=== PATIENT | female | born 1955 | race Caucasian/White ===

== ENCOUNTER 2019-11-19 08:26 | Inpatient (IN) | payer OTHER ==
[~2019-11-19] VITALS: Ht 162.6 cm; Wt 53.5 kg
--- NOTE | ~2019-11-19 | PROC ---
[facility] [address] [place] [address] PROCEDURE REPORT Name: KRISTY UPTON Room: [address] IN M.R.#: [id number] Admission: 11/19/19 Attend Phys: Ravinder Rosas Discharge: Date of : 59 Report #: [id number] THIS REPORT FOR: //name// cc: Vivian Alegre Angela Jo RNP ~ THIS REPORT FOR: //name// For GI report, please see the Provation report in Perceptive 7 content. By: 1310Medical Records Staff TEDDY /ISABEL
--- NOTE | ~2019-11-19 | EMS ---
[facility] [address] [place] [address] EMS Patient Care Report Name: VIDHYA UPTON Room: [facility]#: [id number] Admission: 11/19/19 Attend Phys: Discharge: Date of : 59 Report #: [id number] THIS REPORT FOR: //name// Report Transmitted: 11/19/2019 10:35 EMS Care Summary [facility] [place] Incident [id number] @ 11/19/2019 07:36 Incident Location [address] [place] [address] Patient Vidhya Upton Female, 64 Years 1955 Patient Address [id number] [place] [address] Patient History ,Endocrine Condition - Other,Acute kidney failure, unspecified,Cerebral infarction, unspecified,Old myocardial infarction,Hypertension (HTN),Cardiac Arrest, Patient Allergies , Chief Complaint Shortness of Breath Disposition Transported No Lights/[place] Dispatch Reason Breathing Problem Transported To [facility] Narrative Dispatched to address noted for shortness of breath. [facility] en route at time noted. Arrived and found the patient in her bed. Patient was alert and oriented with the RN in the room. RN stated that the patient is feeling shortness of breath with a history of COPD and low O2 saturation. Patient was placed on O2 [address] [address] EMS Patient Care Report Name: VIDHYA UPTON Room: [facility]#: [id number] Admission: 11/19/19 Attend Phys: Discharge: Date of : 59 Report #: [id number] by the RN and does not normally wear O2. patient was alert and oriented and agreed to transport to [facility] for care due to [place]'s high volume status. Patient had diminished lung sounds per the squadron worker student with us. Patient was moved to stretcher and then buckled in. ONce in ambulance, vitals where started. 12 lead with IV obtained as noted. Patients lab results indicated high WBC count as well as low hemoglobin. Patient also stated foul smelling odor in urine for a few days. patient stated a 8/10 breathing difficulty but has no obvious hard work of breathing. Patient was continued on the 4 liters of O2 and transport was started. While en route, vitals where taken again as noted. Front Counter Attendant student started an A+A treatment with the ambulance exhaust on. Patient denied improvement with treatment. Radio report given at time noted. Arrived and took patient to room 13. patient as moved to bed and RN was given verbal report. RN signed for patient care and patient. Patient was unable to x ray developer pen. END REPORT EMT-P Rhett Pfeiffer Initial Vitals @07:51SpO2: 82, @07:52SpO2: 86, @07:52SpO2: 86, @07:53SpO2: 86, @07:59SpO2: 86, @08:00SpO2: 86, @08:01SpO2: 85, @08:02SpO2: 86, @08:02SpO2: 86, @08:12SpO2: 94, @08:18SpO2: 95, @07:56 @07:53P: 85,R: 16,BP: 126/70, @07:59P: 82,R: 16,BP: 123/67, @08:18P: 83,R: 16,BP: 131/74, @07:53GCS: 15, @07:59GCS: 15, @08:18GCS: 15, @07:41 Assessments @07:41MENTAL:SKIN:HEENT:LUNG SOUNDS:ABDOMEN:PELVIS//GI:EXTREMITIES:PULSE:NEURO: Impression Chronic obstructive pulmonary disease with (acute) exacerbation Procedures @07:41Other - Medication - 4.000 Liters per Minute (l/min [fluid]) - Nasal CannulaResponse: Unchanged@08:05Other - Medication - 8.000 [place] [address] EMS Patient Care Report Name: VIDHYA UPTON Room: [facility]#: [id number] Admission: 11/19/19 Attend Phys: Discharge: Date of : 59 Report #: [id number] (l/min [fluid]) - InhalationResponse: Unchanged@08:05Albuterol - 2.500 Milligrams (mg) - InhalationResponse: Unchanged@08:05Ipratropium - 0.500 Milligrams (mg) - InhalationResponse: Unchanged@08:02 cc () Site: Antecubital-LeftResponse: UnchangedFailed@08:08 cc () Site: Forearm-LeftResponse: UnchangedSucceeded@07:5612-Lead ECGResponse: UnchangedSucceeded Timeline 19:41,Call Received 07:35,Dispatch Notified 07:35,Psap Call 07:36,Dispatched 07:36,En Route 07:39,On Scene 07:41,At Patient 07:41,Other - Medication - 4.000 Liters per Minute (l/min [fluid]) - Nasal Cannula,Response: Unchanged 07:41,BP: / M,PULSE: ,RR: R,SPO2: Ox,ETCO2: ,BG: ,PAIN: ,GCS: , 07:51,BP: / M,PULSE: ,RR: R,SPO2: 82 Ox,ETCO2: ,BG: ,PAIN: ,GCS: , 07:52,BP: / M,PULSE: ,RR: R,SPO2: 86 Ox,ETCO2: ,BG: ,PAIN: ,GCS: , 07:52,BP: / M,PULSE: ,RR: R,SPO2: 86 Ox,ETCO2: ,BG: ,PAIN: ,GCS: , 07:53,BP: / M,PULSE: ,RR: R,SPO2: 86 Ox,ETCO2: ,BG: ,PAIN: ,GCS: , 07:53,BP: 126/70 M,PULSE: 85,RR: 16 R,SPO2: Ox,ETCO2: ,BG: ,PAIN: ,GCS: , 07:53,BP: / M,PULSE: ,RR: R,SPO2: Ox,ETCO2: ,BG: ,PAIN: ,GCS: 15, 07:56,12-Lead ECG,Response: UnchangedSucceeded, 07:56,BP: / M,PULSE: ,RR: R,SPO2: Ox,ETCO2: ,BG: ,PAIN: ,GCS: , 07:59,BP: / M,PULSE: ,RR: R,SPO2: 86 Ox,ETCO2: ,BG: ,PAIN: ,GCS: , 07:59,BP: 123/67 M,PULSE: 82,RR: 16 R,SPO2: Ox,ETCO2: ,BG: ,PAIN: ,GCS: , 07:59,BP: / M,PULSE: ,RR: R,SPO2: Ox,ETCO2: ,BG: ,PAIN: ,GCS: 15, 08:00,BP: / M,PULSE: ,RR: R,SPO2: 86 Ox,ETCO2: ,BG: ,PAIN: ,GCS: , 08:01,BP: / M,PULSE: ,RR: R,SPO2: 85 Ox,ETCO2: ,BG: ,PAIN: ,GCS: , 08:02,BP: / M,PULSE: ,RR: R,SPO2: 86 Ox,ETCO2: ,BG: ,PAIN: ,GCS: , 08:02,BP: / M,PULSE: ,RR: R,SPO2: 86 Ox,ETCO2: ,BG: ,PAIN: ,GCS: , 08:02, cc Site: Antecubital-Left,Response: UnchangedFailed, 08:05,Depart Scene 08:05,Other - Medication - 8.000 Liters per Minute (l/min [fluid]) - Inhalation,Response: Unchanged 08:05,Albuterol - 2.500 Milligrams (mg) - Inhalation,Response: Unchanged 08:05,Ipratropium - 0.500 Milligrams (mg) - Inhalation,Response: Unchanged 08:08, cc Site: Forearm-Left,Response: UnchangedSucceeded, 08:12,BP: / M,PULSE: ,RR: R,SPO2: 94 Ox,ETCO2: ,BG: ,PAIN: ,GCS: , 08:18,BP: / M,PULSE: ,RR: R,SPO2: 95 Ox,ETCO2: ,BG: ,PAIN: ,GCS: , 08:18,BP: 131/74 M,PULSE: 83,RR: 16 R,SPO2: Ox,ETCO2: ,BG: ,PAIN: ,GCS: , 08:18,BP: / M,PULSE: ,RR: R,SPO2: Ox,ETCO2: ,BG: ,PAIN: ,GCS: 15, 08:24,At Destination 08:44,Call Closed [facility] [address] [place] [address] EMS Patient Care Report Name: VIDHYA UPTON Room: [facility]#: [id number] Admission: 11/19/19 Attend Phys: Discharge: Date of : 59 Report #: [id number] Disclaimer v1.1 Copyright 2020 [employer] This EMS Care Summary contains data elements from the applicable legal record (which may be displayed differently). It is designed to provide pertinent information for the following purposes: continuity of care, clinical quality, and state data reporting. The complete legal record is available to ED staff and administrators of the receiving hospital in [facility]'s Patient Tracker. All data is provided "as is."
[2019-11-19 08:34] VITALS: BP 119/68
[2019-11-19] MEDS ORDERED: AFRIN15 ML NASAL (08:42)
[2019-11-19] MEDS ORDERED: CALCIUM CARBON500 MG PO (08:43)
[2019-11-19] MEDS ORDERED: LIPITOR 20 MG T20 M1 PO (08:43)
[2019-11-19] MEDS ORDERED: ELIQUIS2.5 MG PO (08:43)
[2019-11-19] MEDS ORDERED: ASA81BEC PO (08:43)
[2019-11-19] MEDS ORDERED: HYDROCODON-ACE1 EAC7 PO (08:44)
[2019-11-19] MEDS ORDERED: HUMALOG100 UNIT/1 SUBQ (08:44)
[2019-11-19] MEDS ORDERED: FUROSEMIDE 20 M20 MG PO (08:44)
[2019-11-19] MEDS ORDERED: ISOSORBIDE MONO10 MG PO (08:45)
[2019-11-19] MEDS ORDERED: MILK OF MA400 MG/5 M PO (08:45)
[2019-11-19] MEDS ORDERED: PROCARDIA XL60 MG PO (08:45)
[2019-11-19] MEDS ORDERED: TYLENOL325 MG PO (08:46)
[2019-11-19] MEDS ORDERED: PROTONIX40 M3 PO (08:46)
[2019-11-19] MEDS ORDERED: BRILINTA90 MG PO (08:46)
[2019-11-19] MEDS ORDERED: VISINE ALLERGY15 ML OPHTHALMIC (08:47)
[2019-11-19 08:53] LABS: ABSOLUTE BASOPHILS 0.2 thou/uL (0.0-0.2); ABSOLUTE LYMPHOCYTES 0.9 thou/uL (0.8-5.3); ABSOLUTE MONOCYTES 0.7 thou/uL (0.0-1.2); ABSOLUTE NEUTROPHILS 8.6 thou/uL (1.6-8.1); BASOPHILS 1.5 %; EOSINOPHILS 0.4 %; HEMATOCRIT 22.7 % (37.0-47.0); HEMOGLOBIN 7.6 gm/dL (12.0-15.0); MCH 31.2 pg (26.0-34.0); MCHC 33.5 g/dL (28.0-37.0); MCV 93.2 fL (80.0-100.0); MONOCYTES 6.5 %; MPV 9.9 fl. (7.2-11.1); NUCLEATED RBCS 0 /100WBC; PLATELET COUNT* 202 thou/uL (150-400); POLYS 82.6 %; RBC 2.43 mil/uL (4.20-5.00); RDW-CV 17.3 % (10.5-14.5); WBC 10.4 thou/uL (4.0-11.0)
[2019-11-19 09:02] LABS: ANION GAP 9 mmol/L (7-16); APTT 29.6 Seconds (25.0-31.3); BUN 18 mg/dL (7-18); CALCIUM 8.3 mg/dL (8.5-10.1); CHLORIDE 96 mmol/L (98-107); CO2 28 mmol/L (21-32); CREATININE 2.8 mg/dL (0.6-1.3); GLUCOSE 217 mg/dL (70-99); INR 1.2; POTASSIUM 3.5 mmol/L (3.5-5.1); PROTIME 12.2 Seconds (9.20-11.50); SODIUM 133 mmol/L (136-145)
[2019-11-19 09:13] LABS: ALBUMIN 2.3 g/dL (3.4-5.0); ALKALINE PHOSPHATASE 90 U/L (46-116); LIPASE 109 U/L (73-393); MAGNESIUM 2.1 mg/dL (1.8-2.4); NT-PRO BRAIN NAT PEPTIDE > 35000 pg/mL (<300); SGOT 29 U/L (15-37); SGPT 136 U/L (30-65); TOTAL BILIRUBIN 1.6 mg/dL (<0.1-1.0); TOTAL PROTEIN 6.3 g/dL (6.4-8.2)
[2019-11-19 10:18] LABS: PCO2 36.9 mmHg (35.0-45.0); pH 7.476 (7.340-7.450)
[2019-11-19 10:20] LABS: PO2 54.9 mmHg (75.0-100.0)
[2019-11-19 11:22] LABS: ICTOTEST (BILI CONFIRMATORY) Negative (Negative); URINE BILIRUBIN 2+ (Negative); URINE BLOOD 3+ (Negative); URINE CLARITY CLEAR; URINE COLOR YELLOW; URINE GLUCOSE-RANDOM TRACE (Negative); URINE KETONES TRACE (Negative); URINE LEUKOCYTES-REFLEX 3+ (Negative); URINE NITRITE-REFLEX POSITIVE (Negative); URINE PROTEIN 3+ (Negative); URINE SPECIFIC GRAVITY 1.025 (1.005-1.030)
[2019-11-19 11:36] LABS: BACTERIA-REFLEX >30 Many /HPF (None Seen); SQUAMOUS 0-3 Few /LPF (0-3); URINE RBC >20 Many /HPF (0-2); URINE WBC-REFLEX >25 Many /HPF (0-5)
[2019-11-19 11:38] LABS: CASTS None Seen /LPF (None Seen); MUCUS 0-3 Light strn/LPF (None Seen)
[2019-11-19 11:39] LABS: CRYSTALS None Seen /LPF (None Seen)
[2019-11-19 14:15] VITALS: BP 140/83
--- NOTE | 2019-11-19 16:28 | EKG ---
[place] [address] ELECTROCARDIOGRAM REPORT Name: NANDOBAUTISTAKRISTY K Room: [place] [address] ADM IN .R.#: [id number] Admission: 11/19/19 Attend Phys: Louis Butts Discharge: Date of : 59 Date of Service: 11/19/19 0835 Report #: [id number] THIS REPORT FOR: //name// [facility] ED Test Date: 2019-11-19 Test Time: 08:35:07 Pat Name: KRISTY UPTON Department: Room: [facility] Gender: F Cma Or Lpn: TDS : 1955 Requested By: Ken Wong Order Number: [id number] MD: Mk Eden Measurements Intervals [place] Rate: 82 P: 80 [place]: 164 QRS: 2 QRSD: 96 T: -4 QT: 377 QTc: 441 Interpretive Statements Sinus rhythm Probable left atrial enlargement Probable inferior infarct, age indeterminate Probable lateral infarct, old Baseline wander in lead(s) III,aVF No previous ECG available for comparison Electronically Signed On 11-19-2019 16:28:23 CDT by Mk Eden [email or web address] <ELECTRONICALLY SIGNED> By: Mk Eden MD, FAC 11/19/19 1628 0835 0835 Mk Eden MD, FAC /EPI
[2019-11-19 19:17] LABS: CALCIUM 8.1 mg/dL (8.5-10.1); POTASSIUM 4.3 mmol/L (3.5-5.1)
[2019-11-19 19:18] LABS: CREATININE 1.6 mg/dL (0.6-1.3)
[2019-11-20] VITALS: BP 130/73
[2019-11-20 04:00] VITALS: BP 146/85
[2019-11-20 08:00] VITALS: BP 157/94
[2019-11-20 10:07] LABS: CALCIUM 8.4 mg/dL (8.5-10.1); CREATININE 2.4 mg/dL (0.6-1.3); MAGNESIUM 2.2 mg/dL (1.8-2.4); POTASSIUM 4.7 mmol/L (3.5-5.1)
[2019-11-20 12:53] VITALS: BP 162/85
[2019-11-20 14:21] LABS: HEMATOCRIT 22.7 % (37.0-47.0); HEMOGLOBIN 7.4 gm/dL (12.0-15.0)
[2019-11-20 15:03] LABS: CLARITY TURBID; SOURCE PLEURAL FLUID; TOTAL VOLUME 900 ml
[2019-11-20 15:45] LABS: BF RBC 145864 /mm3; TOTAL CELL COUNT 199 /mm3
[2019-11-20 16:02] LABS: BF LYMPHOCYTES 24 %; BF MONOCYTES 54 %; BF POLYS 22 %
[2019-11-20 17:38] VITALS: BP 136/82
[2019-11-20 20:47] VITALS: BP 153/84; BP 156/92; BP 157/85; BP 161/87; BP 169/85
[2019-11-21 01:33] LABS: HEMATOCRIT 29.3 % (37.0-47.0); MCH 31.4 pg (26.0-34.0); MCHC 33.4 g/dL (28.0-37.0); MCV 93.9 fL (80.0-100.0); MPV 10.2 fl. (7.2-11.1); NUCLEATED RBCS 0 /100WBC; PLATELET COUNT* 268 thou/uL (150-400); RBC 3.12 mil/uL (4.20-5.00); RDW-CV 17.3 % (10.5-14.5); WBC 16.2 thou/uL (4.0-11.0)
[2019-11-21 01:36] LABS: HEMOGLOBIN 9.8 gm/dL (12.0-15.0)
[2019-11-21 01:39] LABS: CALCIUM 8.3 mg/dL (8.5-10.1); CREATININE 1.9 mg/dL (0.6-1.3); POTASSIUM 4.4 mmol/L (3.5-5.1)
[2019-11-21 03:14] LABS: ABSOLUTE LYMPHOCYTES 1.1 thou/uL (0.8-5.3); ABSOLUTE MONOCYTES 0.3 thou/uL (0.0-1.2); ABSOLUTE NEUTROPHILS 14.7 thou/uL (1.6-8.1); ANISOCYTOSIS 1+; HYPOCHROMASIA 1+; PLATELET ESTIMATE ADEQUATE; POIKILOCYTOSIS 1+; TOXIC GRANULATION 1+
[2019-11-21 03:15] LABS: POLYCHROMASIA Occasional
[2019-11-21 03:49] VITALS: BP 149/89
[2019-11-21 08:03] VITALS: BP 164/103
[2019-11-21 12:29] VITALS: BP 134/78
[2019-11-21 16:02] VITALS: BP 124/80
--- NOTE | 2019-11-21 17:39 | 2DMMODE ---
[place] [address] 2 D/M-MODE ECHOCARDIOGRAM Name: KRISTY UPTON Room: [address] IN [facility]#: [id number] Admission: 11/19/19 Attend Phys: Louis Butts Discharge: Date of : 59 Date of Service: 11/21/19 1739 Report #: [id number] THIS REPORT FOR: cc: Vivian Alegre Angela Jo RNP Liston, Michael J. MD [facility] ~ APPROVED REPORT Study performed: 11/21/2019 13:28:15 EXAM: Limited 2D Echocardiogram Patient Location: In-Patient Room #: [facility] Status: routine BSA: 1.68 HR: 81 bpm BP: 134/78 mmHg Rhythm: NSR Other Information Study Quality: Good Indications Dyspnea 2D Dimensions IVSd: 12.50 (7-11mm) LVDd: 41.91 mm PWd: 8.95 (7-11mm) LVDs: 30.45 (25-40mm) Volumes Left Atrial Volume (Systole) LA ESV Index: 32.10 mL/m2 Left Ventricle The left ventricle is normal size. There is akinesis of the mid to apical anterior anteroseptal and apical spencer. There is akinesis extending around to the apical portion of the inferior wall. There is normal left ventricular wall thickness. Left ventricular systolic function is moderately decreased. LVEF is 35%. Right Ventricle The right ventricle is normal size. The right ventricular systolic function is normal. [address] [address] 2 D/M-MODE ECHOCARDIOGRAM Name: KRISTY UPTON Room: [address] IN [facility]#: [id number] Admission: 11/19/19 Attend Phys: Louis Butts Discharge: Date of : 59 Date of Service: 11/21/191738 Report #: [id number] Atria The left atrium size is normal. The right atrium size is normal. Aortic Valve The aortic valve is normal in structure. Mitral Valve The mitral valve is normal in structure. Tricuspid Valve The tricuspid valve is normal in structure. Pulmonic Valve The pulmonary valve is normal in structure. Great Vessels The aortic root is normal in size. IVC is normal in size and collapses >50% with inspiration. Pericardium There is no pericardial effusion. Left pleural effusion. <Conclusion> The left ventricle is normal size. There is normal left ventricular wall thickness. Left ventricular systolic function is moderately decreased. LVEF is 35%. IVC is normal in size and collapses >50% with inspiration. Left pleural effusion. <ELECTRONICALLY SIGNED> By: Homar Escobar MD, [facility] 11/21/19 1739 1739 38 Homar Escobar MD, FACC /INF
[2019-11-21 18:44] VITALS: BP 127/80
[2019-11-21 20:00] VITALS: BP 126/76
[2019-11-22 00:56] VITALS: BP 119/71
[2019-11-22 02:06] LABS: GLYCOHEMOGLOBIN (HGB A1C) 5.8 % (4.8-5.6)
[2019-11-22 04:44] VITALS: BP 109/65
[2019-11-22 05:14] LABS: ABSOLUTE BASOPHILS 0.1 thou/uL (0.0-0.2); ABSOLUTE LYMPHOCYTES 0.3 thou/uL (0.8-5.3); ABSOLUTE MONOCYTES 0.5 thou/uL (0.0-1.2); ABSOLUTE NEUTROPHILS 11.6 thou/uL (1.6-8.1); BASOPHILS 0.7 %; HEMATOCRIT 28.9 % (37.0-47.0); HEMOGLOBIN 9.8 gm/dL (12.0-15.0); LYMPHOCYTES 2.8 %; MCH 31.4 pg (26.0-34.0); MCHC 33.8 g/dL (28.0-37.0); MCV 92.7 fL (80.0-100.0); MONOCYTES 4.3 %; MPV 9.8 fl. (7.2-11.1); NUCLEATED RBCS 0 /100WBC; PLATELET COUNT* 272 thou/uL (150-400); POLYS 92.2 %; RBC 3.12 mil/uL (4.20-5.00); RDW-CV 17.2 % (10.5-14.5); WBC 12.6 thou/uL (4.0-11.0)
[2019-11-22 05:47] LABS: ALBUMIN 2.5 g/dL (3.4-5.0); CALCIUM 8.5 mg/dL (8.5-10.1); POTASSIUM 4.9 mmol/L (3.5-5.1); TOTAL BILIRUBIN 1.1 mg/dL (<0.1-1.0); TOTAL PROTEIN 6.5 g/dL (6.4-8.2)
[2019-11-22 05:48] LABS: CREATININE 3.6 mg/dL (0.6-1.3)
[2019-11-22 08:00] VITALS: BP 135/73
--- NOTE | 2019-11-22 11:07 | PATH ---
[address] [address] PATHOLOGY RPT PROCEDURE Name: KRISTY UPTON Room: [address] IN [facility].#: [id number] Admission: 11/19/19 Date of : 59 Discharge: Report #: [id number] Path Case #: [id number] Note [facility] Accession Number: [id number] TESTS RESULT FLAG UNITS REF RANGE LAB Clinician Provided Cytology Information No. of containers..01 Other (Miscellaneous) Source: 01 R. PLEURAL DIAGNOSIS: 02 R. PLEURAL NEGATIVE FOR MALIGNANT EPITHELIAL CELLS. REACTIVE MESOTHELIAL CELLS ARE PRESENT. THIS INTERPRETATION INCLUDES EVALUATION OF A CELL BLOCK. MESOTHELIAL CELLS WITH REACTIVE AND DEGENERATIVE CHANGES ARE PRESENT AMONGST ACUTE AND CHRONIC INFLAMMATORY CELLS AND NUMEROUS RED BLOOD CELLS. Pathologist ICD10: 02 J90, J96.01, N18.6 Signed out by: 02 Cornelia Martin MD, Pathologist NPI- [id number] Performed by: Sachi Segovia, Palliative Care Coordinator ([facility]) Gross description: 01 100 ML, CLDY RED, 1 TP 1CB /LCS 11/21/2019 0615 Local FLAG LEGEND: L-Low Normal,H-High Normal,LL-Alert Low,HH-Alert High <-Panic Low,>-Panic High,A-Abnormal,AA-Critical Abnormal Performed at: [address] [place] [address] Braxton Wing MD, [address] [place] [address] [facility], [place] [address] Yoandy Smith MD, Specimen Comment: Report sent to Performed at: [address], [place], [place] [id number] MD Braxton Wing MD Phone: [phone]
[2019-11-22 15:53] VITALS: BP 134/74
[2019-11-22 20:00] VITALS: BP 128/76
[2019-11-23 00:52] VITALS: BP 109/66
[2019-11-23 04:24] LABS: ABSOLUTE LYMPHOCYTES 0.4 thou/uL (0.8-5.3); ABSOLUTE MONOCYTES 0.6 thou/uL (0.0-1.2); ABSOLUTE NEUTROPHILS 11.2 thou/uL (1.6-8.1); BASOPHILS 0.2 %; HEMOGLOBIN 9.7 gm/dL (12.0-15.0); LYMPHOCYTES 3.6 %; MCH 30.9 pg (26.0-34.0); MCHC 33.3 g/dL (28.0-37.0); MCV 92.9 fL (80.0-100.0); MONOCYTES 4.6 %; MPV 10.3 fl. (7.2-11.1); NUCLEATED RBCS 0 /100WBC; PLATELET COUNT* 249 thou/uL (150-400); POLYS 91.6 %; RBC 3.12 mil/uL (4.20-5.00); RDW-CV 16.8 % (10.5-14.5); WBC 12.3 thou/uL (4.0-11.0)
[2019-11-23 04:32] VITALS: BP 117/62
[2019-11-23 04:32] LABS: CALCIUM 8.6 mg/dL (8.5-10.1); CREATININE 2.7 mg/dL (0.6-1.3); POTASSIUM 4.2 mmol/L (3.5-5.1)
[2019-11-23 08:00] VITALS: BP 137/77
[2019-11-23 11:59] VITALS: BP 133/74
[2019-11-23 15:50] VITALS: BP 102/59
[2019-11-23 20:00] VITALS: BP 129/81
[2019-11-24] VITALS: BP 128/76
[2019-11-24 04:00] VITALS: BP 132/77
[2019-11-24 05:03] LABS: ALBUMIN 2.4 g/dL (3.4-5.0); POTASSIUM 4.3 mmol/L (3.5-5.1); TOTAL BILIRUBIN 0.9 mg/dL (<0.1-1.0)
[2019-11-24 05:22] LABS: CREATININE 3.8 mg/dL (0.6-1.3)
[2019-11-24 06:26] LABS: ABSOLUTE LYMPHOCYTES 0.2 thou/uL (0.8-5.3); ABSOLUTE MONOCYTES 0.5 thou/uL (0.0-1.2); ABSOLUTE NEUTROPHILS 10.5 thou/uL (1.6-8.1); BASOPHILS 0.2 %; HEMATOCRIT 27.6 % (37.0-47.0); HEMOGLOBIN 9.2 gm/dL (12.0-15.0); LYMPHOCYTES 1.8 %; MCH 30.8 pg (26.0-34.0); MCHC 33.2 g/dL (28.0-37.0); MCV 92.7 fL (80.0-100.0); MONOCYTES 4.8 %; MPV 10.4 fl. (7.2-11.1); NUCLEATED RBCS 0 /100WBC; PLATELET COUNT* 251 thou/uL (150-400); POLYS 93.2 %; RBC 2.98 mil/uL (4.20-5.00); RDW-CV 17.1 % (10.5-14.5); WBC 11.2 thou/uL (4.0-11.0)
[2019-11-24 08:00] VITALS: BP 141/79
[2019-11-24 12:00] VITALS: BP 126/72
[2019-11-24 16:00] VITALS: BP 118/70
[2019-11-24 20:00] VITALS: BP 111/67
[2019-11-25 00:34] VITALS: BP 103/63
[2019-11-25 04:00] VITALS: BP 124/72
[2019-11-25 04:18] LABS: ABSOLUTE LYMPHOCYTES 0.2 thou/uL (0.8-5.3); ABSOLUTE MONOCYTES 0.5 thou/uL (0.0-1.2); ABSOLUTE NEUTROPHILS 10.4 thou/uL (1.6-8.1); BASOPHILS 0.1 %; HEMATOCRIT 27.1 % (37.0-47.0); HEMOGLOBIN 9.2 gm/dL (12.0-15.0); LYMPHOCYTES 1.8 %; MCH 31.3 pg (26.0-34.0); MCHC 34.1 g/dL (28.0-37.0); MCV 91.7 fL (80.0-100.0); MONOCYTES 4.7 %; MPV 10.1 fl. (7.2-11.1); NUCLEATED RBCS 0 /100WBC; PLATELET COUNT* 254 thou/uL (150-400); POLYS 93.4 %; RBC 2.96 mil/uL (4.20-5.00); RDW-CV 17.2 % (10.5-14.5); WBC 11.2 thou/uL (4.0-11.0)
[2019-11-25 04:33] LABS: ALBUMIN 2.2 g/dL (3.4-5.0); CALCIUM 7.8 mg/dL (8.5-10.1); CREATININE 4.7 mg/dL (0.6-1.3); POTASSIUM 4.6 mmol/L (3.5-5.1); TOTAL BILIRUBIN 0.8 mg/dL (<0.1-1.0); TOTAL PROTEIN 5.5 g/dL (6.4-8.2)
[2019-11-25 08:10] VITALS: BP 128/71
[2019-11-25 13:02] VITALS: BP 128/66
[2019-11-25 16:46] VITALS: BP 107/64
[2019-11-25 20:10] VITALS: BP 130/70
[2019-11-25] MEDS ORDERED: NORVASC 2.5 MG2.5 M1 PO (22:30)
[2019-11-25] MEDS ORDERED: TRAMADOL 50 MG50 MG PO (22:34)
[2019-11-25] MEDS ORDERED: DEEP SEA NASAL44 M1 NASAL (22:34)
[2019-11-25] MEDS ORDERED: LORAZEPAM I2 MG/1 ML PO (22:41)
[2019-11-25] MEDS ORDERED: ATROPINE SULFATE2 ML OPHTHALMIC (22:43)
[2019-11-25] MEDS ORDERED: SEROQUEL 25 MG25 M1 PO (22:44)
[2019-11-25] MEDS ORDERED: MSL20MG/ML PO ×2 (22:50→22:51)
[2019-11-26] VITALS: BP 123/62
[2019-11-26 04:00] VITALS: BP 130/75
[2019-11-26 04:35] LABS: HEMATOCRIT 29.4 % (37.0-47.0); HEMOGLOBIN 10.2 gm/dL (12.0-15.0); MCHC 34.8 g/dL (28.0-37.0); MCV 91.9 fL (80.0-100.0); MPV 10.5 fl. (7.2-11.1); NUCLEATED RBCS 0 /100WBC; PLATELET COUNT* 292 thou/uL (150-400); RDW-CV 17.4 % (10.5-14.5)
[2019-11-26 05:11] LABS: ALBUMIN 2.1 g/dL (3.4-5.0); CALCIUM 7.7 mg/dL (8.5-10.1); POTASSIUM 4.4 mmol/L (3.5-5.1); TOTAL BILIRUBIN 0.7 mg/dL (<0.1-1.0); TOTAL PROTEIN 5.5 g/dL (6.4-8.2)
[2019-11-26 05:19] LABS: CREATININE 2.9 mg/dL (0.6-1.3)
[2019-11-26 06:18] LABS: ABSOLUTE LYMPHOCYTES 0.2 thou/uL (0.8-5.3); ABSOLUTE MONOCYTES 0.3 thou/uL (0.0-1.2); ABSOLUTE NEUTROPHILS 10.5 thou/uL (1.6-8.1); ANISOCYTOSIS 1+; PLATELET ESTIMATE ADEQUATE
[2019-11-26 06:19] LABS: BURR CELLS 1+; HYPOCHROMASIA 2+; MICROCYTES Occasional
[2019-11-26 07:50] VITALS: BP 130/74
[2019-11-26 08:00] VITALS: BP 130/74
[2019-11-26 17:29] VITALS: BP 133/75
[2019-11-26 19:50] VITALS: BP 135/80
[2019-11-27] VITALS: BP 133/76
[2019-11-27 04:00] VITALS: BP 133/72
[2019-11-27 05:25] LABS: HEMATOCRIT 35.2 % (37.0-47.0); HEMOGLOBIN 11.8 gm/dL (12.0-15.0); MCH 31.1 pg (26.0-34.0); MCHC 33.5 g/dL (28.0-37.0); MCV 92.8 fL (80.0-100.0); MPV 10.2 fl. (7.2-11.1); RBC 3.79 mil/uL (4.20-5.00); RDW-CV 17.9 % (10.5-14.5); WBC 17.4 thou/uL (4.0-11.0)
[2019-11-27 05:39] LABS: CALCIUM 8.6 mg/dL (8.5-10.1); CREATININE 3.8 mg/dL (0.6-1.3); MAGNESIUM 2.1 mg/dL (1.8-2.4); POTASSIUM 5.3 mmol/L (3.5-5.1)
[2019-11-27 17:37] VITALS: BP 119/65
[2019-11-27 20:00] VITALS: BP 100/61; BP 134/79
[2019-11-28] VITALS (15 sets, daily range): BP systolic 110–160; BP diastolic 60–87
--- NOTE | 2019-11-28 12:50 | TEE ---
[place] [address] TRANSESOPHAGEAL ECHOCARDIOGRAM Name: KRISTY UPTON Room: [address] IN [facility]#: [id number] Admission: 11/19/19 Attend Phys: Louis Butts Discharge: Date of : 59 Date of Service: 11/28/19 1249 Report #: [id number] THIS REPORT FOR: cc: Vivian Alegre Angela Jo RNP Liston, Michael J. MD [facility] ~ APPROVED REPORT Study performed: 11/28/2019 11:21:53 EXAM: Transesophageal Echocardiogram Patient Location: In-Patient Room #: [facility] Status: routine BSA: 1.68 HR: 85 bpm BP: 140/78 mmHg Rhythm: NSR Other Information Study Quality: Good Indications CVA/TIA Echo Enhancing Agent Indication: Rule out Shunt Agent(s) / Amount(s) Used: Agitated Saline 10 cc Procedure After obtaining informed consent, patient underwent transesophageal echo in the [employer]. Type of Sedation : Conscious Sedation Sedation was administered by Na Cote RN. Sedation start time: 1140 Case end Time: 1155 Sedation was achieved intravenously with: Versed (3) Fentanyl (75) Transesophageal probe was inserted and advanced into esophagus without difficulty by Homar Escobar MD, [facility]. Echo enhancement indication: R/O Septal defect. Echo enhancement agent administered: Agitated Saline The ILYA was performed without complications. Throughout the procedure, the blood pressure, pulse oximetry, cardiac rhythm, [place] [address] TRANSESOPHAGEAL ECHOCARDIOGRAM Name: KRISTY UPTON Room: [address] IN [facility]#: [id number] Admission: 11/19/19 Attend Phys: Louis Butts Discharge: Date of : 59 Date of Service: 11/28/19 1249 Report #: [id number] The patient tolerated the procedure without adverse effects. Recovery from conscious sedation was uneventful and vital signs were stable. Left Ventricle The left ventricle is normal size. Apical hypokinesis. Mild concentric left ventricular hypertrophy. Left ventricular systolic function is mild to moderately decreased. LVEF is 35-40%. Right Ventricle The right ventricle is normal size. The right ventricular systolic function is normal. Atria No thrombus is visualized in the left atrium or appendage. The interatrial septum is intact with no evidence for an atrial septal defect. The right atrium size is normal. Aortic Valve The aortic valve is normal in structure. No aortic regurgitation is present. There is no aortic valvular stenosis. Mitral Valve The mitral valve is normal in structure. Trace mitral regurgitation. There is normal mitral valve excursion. Tricuspid Valve The tricuspid valve is normal in structure. There is no tricuspid valve regurgitation noted. Pulmonic Valve The pulmonary valve is normal in structure. There is no pulmonic valvular regurgitation. Great Vessels The aortic root is normal in size. Moderate atheromatous plaque of the descending aorta Pericardium There is no pericardial effusion. <Conclusion> The left ventricle is normal size. Mild concentric left ventricular hypertrophy. Left ventricular systolic function is mild [place] [address] TRANSESOPHAGEAL ECHOCARDIOGRAM Name: KRISTY UPTON Room: [address] IN [facility]#: [id number] Admission: 11/19/19 Attend Phys: Louis Butts Discharge: Date of : 59 Date of Service: 11/28/191248 Report #: [id number] LVEF is 35-40%. Apical hypokinesis. The interatrial septum is intact with no evidence for an atrial septal defect. Trace mitral regurgitation. Moderate atheromatous plaque of the descending aorta <ELECTRONICALLY SIGNED> By: Homar Escobar MD, FACC 11/28/199 48 48 Homar Escobar MD, FACC /INF
--- NOTE | 2019-11-28 15:53 | CON ---
[address] [address] CONSULTATION Name: KRISTY UPTON Room: [address] IN M.R.#: [id number] Admission: 11/19/19 Attend Phys: Ravinder Rosas Discharge: Date of : 59 Report #: [id number] THIS REPORT FOR: //name// cc: Vivian Alegre Angela Jo RNP ~ THIS REPORT FOR: //name// CC: Vivian Salinash [place] Butts DATE OF SERVICE: 11/20/2019 NEPHROLOGY CONSULTATION CONSULTING PHYSICIAN: Louis Butts DO REASON FOR NEPHROLOGY CONSULTATION: ESRD and needing hemodialysis. Shortness of breath. REASON FOR ADMISSION: Shortness of breath. HISTORY OF PRESENT ILLNESS: This is a 64-year-old female with diabetic nephropathy, recent new-onset ESRD; on hemodialysis every Monday; Monday; Monday, history of pulmonary hypertension, recent cardiac arrest; needing 2 stents, status post respiratory failure, came in with acute shortness of breath. She was at a rehab in this facility after a prolonged hospitalization at [facility] when she had the cardiac arrest and ended up needing dialysis. She had preexisting chronic kidney disease stage 4 prior to that. She also has systolic dysfunction. She came in yesterday with hypoxia, satting 74% on 2 liters of oxygen by a nasal cannula. Currently, this morning, I saw her on BiPAP. Her chest x-ray showed bilateral pleural effusions as well as evidence of pulmonary edema and she was dialyzed yesterday and is again planned for dialysis today. Her troponins are going up. The patient was very drowsy for me. She was following simple basic commands. ALLERGIES: TO CLINDAMYCIN. REVIEW OF SYSTEMS: Not able to obtain a detailed review of systems because she is very drowsy. HOME MEDICATIONS: Which include Afrin drops, apixaban, aspirin, atorvastatin, calcium carbonate, furosemide, hydrocodone, insulin lispro, isosorbide mononitrate, magnesium hydroxide, nifedipine, pantoprazole, ticagrelor, acetaminophen, [place] [address] CONSULTATION Name: KRISTY UPTON Room: [address]#: [id number] Admission: 11/19/19 Attend Phys: Ravinder Rosas Discharge: Date of : 59 Report #: [id number] PAST MEDICAL AND SURGICAL HISTORY: Which includes ESRD; on hemodialysis every Monday; Monday; Monday, history of diabetic nephropathy, recent cardiac arrest; status post 2 stents; she actually had a STEMI, type 2 diabetes, hyperlipidemia, hypertension, pulmonary hypertension, chronic systolic congestive heart failure. FAMILY HISTORY: Diabetes and hypertension. SOCIAL HISTORY: Drinks on occasions and currently in rehab; not drinking anything, and no tobacco use or recreational drug use. PHYSICAL EXAMINATION: VITAL SIGNS: Blood pressure is 146/85, temperature is 36.4, pulse rate is 92, respiratory rate is 21, and pulse ox 94% on 6 liters of oxygen initially, but currently on BiPAP with 55% FiO2. GENERAL: She is very drowsy for me, tachypneic. HEAD AND EYES: Atraumatic, normocephalic. Conjunctivae normal. EARS, NOSE, AND THROAT: Normal ears, nose and she has a BiPAP in place. NECK: JVD difficult to assess. CHEST: Bilaterally diminished breath sounds anteriorly and crackles were difficult to hear. CARDIOVASCULAR: S1, S2 normal. No murmurs. ABDOMEN: Soft, nondistended, nontender. EXTREMITIES: Lower extremities: There was no lower extremity edema. NEUROLOGICAL FUNCTION: Currently, quite drowsy. PSYCHIATRIC: Not able to assess. LABORATORY DATA: WBC is 10.4, hemoglobin is 7.6. Her creatinine was 2.8 yesterday. Her sodium was 133 yesterday and potassium was 3.5 yesterday. Other labs are reviewed. IMAGING: Chest thoracic CT and chest x-ray reports were reviewed. ASSESSMENT: 1. End-stage renal disease, on hemodialysis, recently started on dialysis after cardiac arrest and history of diabetic nephropathy; gets dialyzed every Monday, Monday, Monday. 2. The patient presented with acute hypoxic respiratory failure in the setting of bilateral pleural effusions and pulmonary edema. 3. Elevated troponin, possible non-ST elevation myocardial infarction. Cardiology is following. 4. History of diabetes type 2, deferred to primary team for management. 5. History of hypertension. Blood pressure seems to be controlled. 6. Anemia of chronic kidney disease. 7[place] [address] CONSULTATION Name: KRISTY UPTON Room: [address] IN M.R.#: [id number] Admission: 11/19/19 Attend Phys: Ravinder Rosas Discharge: Date of : 59 Report #: [id number] PLAN: 1. I will dialyze her today. She was dialyzed yesterday also for fluid removal. She might need thoracentesis for pleural effusions. 2. She is also getting treated for possible pneumonia. 3. Elevated troponin, Cardiology is following. I recommend speaking with Cardiology at [place] since she was recently there with the STEMI, needing 2 stents. 4. We will give her Epogen to help with anemia as well. Thank you for this consult. We will continue to follow with you. I did review the UA and she is on a blood thinner and this specimen is from a catheter, so I am not sure if she was having any symptoms of a UTI. Urine cultures are being checked. Thank you. We will follow with you. <ELECTRONICALLY SIGNED> By: Crystal Luu MD 11/28/19 1553 0920 0949Crystal Luu MD /nt
[2019-11-29] VITALS: BP 134/77
[2019-11-29 04:00] VITALS: BP 128/73
[2019-11-29 05:21] LABS: ANION GAP 8 mmol/L (7-16); BUN 70 mg/dL (7-18); CALCIUM 8.3 mg/dL (8.5-10.1); CHLORIDE 97 mmol/L (98-107); CHOLESTEROL 205 mg/dL (<200); CO2 26 mmol/L (21-32); CREATININE 4.4 mg/dL (0.6-1.3); GLUCOSE 269 mg/dL (70-99); HDL CHOLESTEROL 45 mg/dL (>40); LDL CHOLESTEROL 130 mg/dL (<100); POTASSIUM 4.5 mmol/L (3.5-5.1); SERUM ASSESSMENT CLEAR; SODIUM 131 mmol/L (136-145); TC:HDL 4.6 Ratio (Not establshd); TRIGLYCERIDE 154 mg/dL (<150); VLDL 31 mg/dL (<40)
[2019-11-29 05:27] LABS: ALBUMIN 2.2 g/dL (3.4-5.0); CALCIUM 8.2 mg/dL (8.5-10.1); CREATININE 4.4 mg/dL (0.6-1.3); POTASSIUM 4.4 mmol/L (3.5-5.1)
[2019-11-29 08:00] VITALS: BP 126/69
[2019-11-29 11:00] VITALS: BP 158/88
[2019-11-29 16:00] VITALS: BP 113/63
[2019-11-29 20:00] VITALS: BP 119/60
[2019-11-30] VITALS (7 sets, daily range): BP systolic 93–137; BP diastolic 46–69
[2019-11-30 02:06] LABS: GLYCOHEMOGLOBIN (HGB A1C) 6.2 % (4.8-5.6)
[2019-12-01] VITALS: BP 120/65
[2019-12-01 04:00] VITALS: BP 138/69
[2019-12-01 08:00] VITALS: BP 135/68
[2019-12-01 12:00] VITALS: BP 93/55
[2019-12-01 16:00] VITALS: BP 93/45
[2019-12-01 18:17] LABS: HEMATOCRIT 25.9 % (37.0-47.0); HEMOGLOBIN 8.7 gm/dL (12.0-15.0)
[2019-12-01 20:00] VITALS: BP 110/56
[2019-12-02] VITALS (26 sets, daily range): BP systolic 90–133; BP diastolic 55–70
[2019-12-02 04:30] LABS: HEMATOCRIT 26.5 % (37.0-47.0); HEMOGLOBIN 8.8 gm/dL (12.0-15.0); MCH 30.9 pg (26.0-34.0); MCHC 33.3 g/dL (28.0-37.0); MCV 92.9 fL (80.0-100.0); MPV 10.1 fl. (7.2-11.1); RBC 2.86 mil/uL (4.20-5.00); RDW-CV 18.2 % (10.5-14.5); WBC 28.9 thou/uL (4.0-11.0)
[2019-12-02 04:39] LABS: CALCIUM 8.4 mg/dL (8.5-10.1); POTASSIUM 5.5 mmol/L (3.5-5.1)
[2019-12-02 04:48] LABS: CREATININE 5.5 mg/dL (0.6-1.3)
[2019-12-02 14:34] LABS: HEMOGLOBIN 7.9 gm/dL (12.0-15.0); MCH 31.6 pg (26.0-34.0); MCHC 34.3 g/dL (28.0-37.0); MCV 92.2 fL (80.0-100.0); NUCLEATED RBCS 0 /100WBC; PLATELET COUNT* 241 thou/uL (150-400); RBC 2.49 mil/uL (4.20-5.00); RDW-CV 18.6 % (10.5-14.5); WBC 27.9 thou/uL (4.0-11.0)
[2019-12-02 14:58] LABS: ALBUMIN 1.8 g/dL (3.4-5.0); CALCIUM 7.6 mg/dL (8.5-10.1); TOTAL BILIRUBIN 0.8 mg/dL (<0.1-1.0); TOTAL PROTEIN 4.6 g/dL (6.4-8.2)
[2019-12-02 15:00] LABS: CREATININE 2.5 mg/dL (0.6-1.3); POTASSIUM 4.2 mmol/L (3.5-5.1)
[2019-12-02 15:09] LABS: ABSOLUTE LYMPHOCYTES 1.1 thou/uL (0.8-5.3); ABSOLUTE MONOCYTES 0.8 thou/uL (0.0-1.2); ABSOLUTE NEUTROPHILS 25.9 thou/uL (1.6-8.1)
[2019-12-02 15:10] LABS: ANISOCYTOSIS 1+; HYPOCHROMASIA 1+; PLATELET ESTIMATE ADEQUATE; POIKILOCYTOSIS 1+
[2019-12-02 16:38] LABS: INR 1.1; PROTIME 11.3 Seconds (9.20-11.50)
[2019-12-02 21:13] LABS: HEMATOCRIT 23.5 % (37.0-47.0); HEMOGLOBIN 7.9 gm/dL (12.0-15.0)
[2019-12-03] VITALS (50 sets, daily range): BP systolic 97–134; BP diastolic 47–75
[2019-12-03 07:17] LABS: ABSOLUTE BASOPHILS 0.1 thou/uL (0.0-0.2); ABSOLUTE LYMPHOCYTES 0.3 thou/uL (0.8-5.3); ABSOLUTE MONOCYTES 2.6 thou/uL (0.0-1.2); ABSOLUTE NEUTROPHILS 21.5 thou/uL (1.6-8.1); BASOPHILS 0.3 %; EOSINOPHILS 0.1 %; HEMATOCRIT 22.2 % (37.0-47.0); HEMOGLOBIN 7.3 gm/dL (12.0-15.0); LYMPHOCYTES 1.3 %; MCH 30.6 pg (26.0-34.0); MCHC 33.1 g/dL (28.0-37.0); MCV 92.6 fL (80.0-100.0); MONOCYTES 10.6 %; MPV 9.9 fl. (7.2-11.1); NUCLEATED RBCS 0 /100WBC; PLATELET COUNT* 211 thou/uL (150-400); POLYS 87.7 %; RBC 2.39 mil/uL (4.20-5.00); RDW-CV 18.5 % (10.5-14.5); WBC 24.6 thou/uL (4.0-11.0)
[2019-12-03 07:30] LABS: PREALBUMIN 14.9 mg/dL (18.0-35.7)
[2019-12-03 07:36] LABS: ALBUMIN 1.7 g/dL (3.4-5.0); CALCIUM 7.6 mg/dL (8.5-10.1); POTASSIUM 3.8 mmol/L (3.5-5.1); TOTAL BILIRUBIN 0.9 mg/dL (<0.1-1.0); TOTAL PROTEIN 5.1 g/dL (6.4-8.2)
[2019-12-03 07:37] LABS: CREATININE 3.5 mg/dL (0.6-1.3)
[2019-12-04] VITALS (19 sets, daily range): BP systolic 111–161; BP diastolic 62–83
[2019-12-04 04:36] LABS: ABSOLUTE BASOPHILS 0.1 thou/uL (0.0-0.2); ABSOLUTE EOSINOPHILS 0.2 thou/uL (0.0-0.7); ABSOLUTE LYMPHOCYTES 4.7 thou/uL (0.8-5.3); ABSOLUTE MONOCYTES 1.7 thou/uL (0.0-1.2); ABSOLUTE NEUTROPHILS 12.6 thou/uL (1.6-8.1); BASOPHILS 0.4 %; EOSINOPHILS 1.2 %; HEMATOCRIT 20.5 % (37.0-47.0); LYMPHOCYTES 24.4 %; MCHC 33.8 g/dL (28.0-37.0); MCV 91.8 fL (80.0-100.0); MONOCYTES 8.7 %; MPV 10.2 fl. (7.2-11.1); NUCLEATED RBCS 0 /100WBC; PLATELET COUNT* 196 thou/uL (150-400); POLYS 65.3 %; RBC 2.24 mil/uL (4.20-5.00); WBC 19.3 thou/uL (4.0-11.0)
[2019-12-04 04:57] LABS: HEMOGLOBIN 6.9 gm/dL (12.0-15.0)
[2019-12-04 05:06] LABS: PREALBUMIN 13.2 mg/dL (18.0-35.7)
[2019-12-04 06:40] LABS: ALBUMIN 1.4 g/dL (3.4-5.0); CALCIUM 7.1 mg/dL (8.5-10.1); CREATININE 4.1 mg/dL (0.6-1.3); POTASSIUM 3.8 mmol/L (3.5-5.1); TOTAL BILIRUBIN 0.7 mg/dL (<0.1-1.0); TOTAL PROTEIN 4.5 g/dL (6.4-8.2)
[2019-12-04 14:01] LABS: HEMATOCRIT 26.2 % (37.0-47.0)
[2019-12-04 14:02] LABS: HEMOGLOBIN 9.1 gm/dL (12.0-15.0)
[2019-12-05 01:01] VITALS: BP 138/70
[2019-12-05 04:32] VITALS: BP 151/75
[2019-12-05 19:00] VITALS: BP 157/85
[2019-12-05 19:50] VITALS: BP 155/86
[2019-12-06] VITALS: BP 104/49
[2019-12-06 04:43] VITALS: BP 158/82
[2019-12-06 04:57] LABS: HEMATOCRIT 24.4 % (37.0-47.0); HEMOGLOBIN 8.4 gm/dL (12.0-15.0); MCH 30.3 pg (26.0-34.0); MCHC 34.4 g/dL (28.0-37.0); MCV 88.2 fL (80.0-100.0); MPV 9.7 fl. (7.2-11.1); RBC 2.77 mil/uL (4.20-5.00); RDW-CV 20.5 % (10.5-14.5); WBC 12.8 thou/uL (4.0-11.0)
[2019-12-06 05:16] LABS: ALBUMIN 1.7 g/dL (3.4-5.0); CALCIUM 7.8 mg/dL (8.5-10.1); CREATININE 3.8 mg/dL (0.6-1.3); MAGNESIUM 1.9 mg/dL (1.8-2.4); POTASSIUM 3.8 mmol/L (3.5-5.1)
[2019-12-06 15:01] VITALS: BP 177/81
[2019-12-06 18:55] VITALS: BP 167/88
[2019-12-06 20:00] VITALS: BP 162/92
[2019-12-07] VITALS: BP 160/83
[2019-12-07 04:00] VITALS: BP 144/76
[2019-12-07 05:07] LABS: ABSOLUTE BASOPHILS 0.1 thou/uL (0.0-0.2); ABSOLUTE EOSINOPHILS 0.4 thou/uL (0.0-0.7); ABSOLUTE LYMPHOCYTES 1.4 thou/uL (0.8-5.3); ABSOLUTE MONOCYTES 1.5 thou/uL (0.0-1.2); ABSOLUTE NEUTROPHILS 8.4 thou/uL (1.6-8.1); BASOPHILS 0.8 %; EOSINOPHILS 3.4 %; HEMATOCRIT 24.9 % (37.0-47.0); HEMOGLOBIN 8.4 gm/dL (12.0-15.0); LYMPHOCYTES 11.5 %; MCH 30.1 pg (26.0-34.0); MCHC 33.9 g/dL (28.0-37.0); MCV 88.8 fL (80.0-100.0); MPV 9.8 fl. (7.2-11.1); NUCLEATED RBCS 0 /100WBC; PLATELET COUNT* 197 thou/uL (150-400); POLYS 71.3 %; RDW-CV 19.9 % (10.5-14.5); WBC 11.8 thou/uL (4.0-11.0)
[2019-12-07 05:07] LABS: HEPATITIS B SURFACE AG Negative (Negative)
[2019-12-07 05:38] LABS: ALBUMIN 1.8 g/dL (3.4-5.0); CALCIUM 7.9 mg/dL (8.5-10.1); MAGNESIUM 1.9 mg/dL (1.8-2.4); TOTAL PROTEIN 5.3 g/dL (6.4-8.2)
[2019-12-07 06:02] LABS: CREATININE 2.8 mg/dL (0.6-1.3)
[2019-12-07 08:00] VITALS: BP 134/69
[2019-12-07 12:37] VITALS: BP 154/85
[2019-12-07 19:50] VITALS: BP 144/79
[2019-12-08] VITALS: BP 141/75
[2019-12-08 04:00] VITALS: BP 129/69
[2019-12-08 08:00] VITALS: BP 142/71
[2019-12-08 12:47] VITALS: BP 136/77
[2019-12-08 16:20] VITALS: BP 143/77
[2019-12-08 20:30] VITALS: BP 123/77
[2019-12-09] VITALS: BP 151/77
[2019-12-09 00:36] LABS: URINE BILIRUBIN NEGATIVE (Negative); URINE BLOOD 2+ (Negative); URINE CLARITY CLOUDY; URINE COLOR DARK YELLOW; URINE GLUCOSE-RANDOM NEGATIVE (Negative); URINE KETONES TRACE (Negative); URINE LEUKOCYTES-REFLEX TRACE (Negative); URINE NITRITE-REFLEX NEGATIVE (Negative); URINE PROTEIN 3+ (Negative); URINE UROBILINOGEN 0.2 E.U./dl (0.2-1.0)
[2019-12-09 00:43] LABS: BACTERIA-REFLEX >30 Many /HPF (None Seen); CELLULAR CASTS 0-3 Few /LPF (None Seen); COARSE GRANULAR CASTS 0-3 Few /LPF (None Seen); FINE GRANULAR CASTS 0-3 Few /LPF (None Seen); MUCUS 4-6 Moderate strn/LPF (None Seen); SQUAMOUS 0-3 Few /LPF (0-3); URINE RBC >20 Many /HPF (0-2); URINE WBC-REFLEX >25 Many /HPF (0-5); WBC CLUMPS Moderate (None Seen)
[2019-12-09 00:44] LABS: AMORPHOUS URATES Moderate /LPF (None Seen)
[2019-12-09 04:00] VITALS: BP 150/76
[2019-12-09 05:20] LABS: ALBUMIN 1.8 g/dL (3.4-5.0); CALCIUM 8.2 mg/dL (8.5-10.1); MAGNESIUM 1.9 mg/dL (1.8-2.4); PHOSPHORUS* 1.9 mg/dL (2.5-4.9); POTASSIUM 3.6 mmol/L (3.5-5.1)
[2019-12-09 05:25] LABS: % SATURATION 38 % (20-39); IRON 59 ug/dL (50-175)
[2019-12-09 05:33] LABS: CREATININE 4.9 mg/dL (0.6-1.3)
[2019-12-09 06:22] LABS: HEMOGLOBIN 7.8 gm/dL (12.0-15.0); MCH 30.7 pg (26.0-34.0); MCV 90.3 fL (80.0-100.0); MPV 9.7 fl. (7.2-11.1); RBC 2.55 mil/uL (4.20-5.00); RDW-CV 20.3 % (10.5-14.5); WBC 14.8 thou/uL (4.0-11.0)
[2019-12-09 11:00] VITALS: BP 143/87
[2019-12-09 12:44] VITALS: BP 137/98
[2019-12-09 14:49] LABS: ABSOLUTE BASOPHILS 0.2 thou/uL (0.0-0.2); ABSOLUTE EOSINOPHILS 0.4 thou/uL (0.0-0.7); ABSOLUTE LYMPHOCYTES 1.2 thou/uL (0.8-5.3); ABSOLUTE MONOCYTES 0.8 thou/uL (0.0-1.2); ABSOLUTE NEUTROPHILS 11.8 thou/uL (1.6-8.1); BASOPHILS 1.1 %; EOSINOPHILS 2.6 %; HEMATOCRIT 23.5 % (37.0-47.0); LYMPHOCYTES 8.5 %; MCH 30.6 pg (26.0-34.0); MCHC 34.2 g/dL (28.0-37.0); MCV 89.4 fL (80.0-100.0); MONOCYTES 5.4 %; NUCLEATED RBCS 0 /100WBC; PLATELET COUNT* 201 thou/uL (150-400); POLYS 82.4 %; RBC 2.63 mil/uL (4.20-5.00); RDW-CV 19.8 % (10.5-14.5); WBC 14.4 thou/uL (4.0-11.0)
[2019-12-09 15:00] LABS: PROTIME 10.6 Seconds (9.20-11.50)
[2019-12-09 17:00] VITALS: BP 135/71; BP 152/82
[2019-12-09 19:50] VITALS: BP 141/85
[2019-12-10 04:30] VITALS: BP 160/93
[2019-12-10 05:09] LABS: ABSOLUTE BASOPHILS 0.2 thou/uL (0.0-0.2); ABSOLUTE EOSINOPHILS 0.4 thou/uL (0.0-0.7); ABSOLUTE LYMPHOCYTES 1.2 thou/uL (0.8-5.3); ABSOLUTE NEUTROPHILS 9.8 thou/uL (1.6-8.1); BASOPHILS 1.3 %; EOSINOPHILS 3.4 %; HEMOGLOBIN 9.2 gm/dL (12.0-15.0); LYMPHOCYTES 9.8 %; MCH 30.2 pg (26.0-34.0); MCHC 34.1 g/dL (28.0-37.0); MCV 88.7 fL (80.0-100.0); MONOCYTES 8.1 %; MPV 9.2 fl. (7.2-11.1); NUCLEATED RBCS 0 /100WBC; PLATELET COUNT* 196 thou/uL (150-400); POLYS 77.4 %; RBC 3.05 mil/uL (4.20-5.00); WBC 12.7 thou/uL (4.0-11.0)
[2019-12-10 05:20] LABS: ALBUMIN 1.9 g/dL (3.4-5.0); CALCIUM 7.8 mg/dL (8.5-10.1); POTASSIUM 3.8 mmol/L (3.5-5.1); TOTAL BILIRUBIN 0.8 mg/dL (<0.1-1.0); TOTAL PROTEIN 5.9 g/dL (6.4-8.2)
[2019-12-10 08:00] VITALS: BP 157/89
[2019-12-10 11:00] VITALS: BP 134/94
[2019-12-10] MEDS ORDERED: PROTONIX40 M3 PO (11:30)
[2019-12-10] MEDS ORDERED: MIDODRINE HCL 55 M1 PO (11:30)
[2019-12-10] MEDS ORDERED: ALBUTEROL2.5 MG/31 INH (11:30)
[2019-12-10] MEDS ORDERED: HUMALOG100 UNIT/1 SUBQ ×2 (11:30→11:32)
[2019-12-10] MEDS ORDERED: REGLAN 10 MG TA10 MG PO (11:30)
[2019-12-10] MEDS ORDERED: LIPITOR 40 MG T40 M1 PO (11:30)
[2019-12-10] MEDS ORDERED: HUMULIN N100 UNIT/1 SUBQ (11:30)
[2019-12-10] MEDS ORDERED: PEPCID20 MG PO (11:30)
[2019-12-10] MEDS ORDERED: IMDUR 30 MG TAB30 M1 PO (11:30)
[2019-12-10] MEDS ORDERED: IPRAT-ALBUT 0.5-3 ML INH (11:30)
[2019-12-10] MEDS ORDERED: COREG6.25 MG PO (11:30)
[2019-12-10] MEDS ORDERED: EPOGEN2000 UNIT/ IVPUSH (11:30)
[2019-12-10 12:00] VITALS: BP 152/88
[2019-12-10 13:33] VITALS: BP 152/88
[2019-12-10 16:00] VITALS: BP 155/100
--- NOTE | 2019-12-12 13:11 | CON ---
[address] [address] CONSULTATION Name: KRISTY UPTON Room: [address] IN M.R.#: [id number] Admission: 11/19/19 Attend Phys: Ravinder Rosas Discharge: 12/10/19 Date of : 59 Report #: [id number] THIS REPORT FOR: //name// cc: Vivian Alegre Angela Jo RNP ~ THIS REPORT FOR: //name// CC: Vivian Butts DATE OF SERVICE: 12/05/2019 REQUESTING PHYSICIAN: Dr. Alejo. INDICATION FOR CONSULTATION: Aspiration pneumonia/anoxia. HISTORY OF PRESENT ILLNESS: This is a 64-year-old female, who was initially admitted on 11/19/2019. The patient is reported to have previously had a cardiac arrest and now has presented with acute shortness of breath. The patient previously was on 4 liters oxygen at home, was reported to be saturating only 74% on 2 liters on arrival. The patient had been recently started on hemodialysis prior to admission. The patient does have a dialysis catheter in place. Since arrival, the patient has been evaluated by the Cardiology Service as well as by the GI service and has been followed by Nephrology as well. She did have a significant elevation in troponin I up to 1.6. on the day of admission. She does have a depressed left ventricular ejection fraction. Initially she also did have a thoracentesis which was reported to hemorrhagic, but the protein is only 1.1 on the fluid. The patient has been treated with various antibiotics during this hospitalization. Initially, she was on Zithromax as well as ceftriaxone that she briefly received Levaquin as well as metronidazole. The patient currently is on Zosyn since 12/02/2019. The patient subsequently has had a drop in hemoglobin as well and just had an EGD, which does show an esophageal ulcer. The patient currently is running a low-grade fever of 100.4. The patient overall reports feeling better since she was admitted. She earlier was on Eliquis, which was discontinued on the . She is reported to have had upper extremity venous thrombus. The patient has been evaluated by speech during this hospitalization. Currently, the patient does not report coughing with eating food. There is no sputum production, no chest pain, no upper respiratory complaints. There is mild swelling of lower extremities. The patient answered to the negative for 12 questions for review of systems except as above with the exception that she does have some sleep complaints as well as [place] [address] CONSULTATION Name: KRISTY UPTON Alisia Room: [address] IN M.R.#: [id number] Admission: 11/19/19 Attend Phys: Ravinder Rosas Discharge: 12/10/19 Date of : 59 Report #: [id number] PAST MEDICAL HISTORY: End-stage renal disease. The patient has only recently been started on hemodialysis, diabetic nephropathy, cardiac arrest in the past has 2 stents, diabetes, hyperlipidemia, hypertension. The patient's recent echocardiogram shows congestive heart failure with left ventricular ejection fraction decreased to 35%. The tricuspid valve is reported to be normal on this echo. SOCIAL HISTORY: Lifetime nonsmoker. No known history of heavy alcohol use or illegal drug use. CURRENT MEDICATIONS: List in [facility] reviewed. FAMILY HISTORY: No pertinent family history is known at this time. ALLERGIES: LORAZEPAM AND CLINDAMYCIN ARE LISTED ALLERGIES. PHYSICAL EXAMINATION: GENERAL: The patient is able to provide only a limited history; however, she is alert, awake and oriented. She is not on supplemental oxygen. VITAL SIGNS: Has a pulse of 87 and a blood pressure of 148/105. She is saturating 98%. Her respiratory rate is 15-16. She is afebrile with a temperature of 36.8 as of this morning. HEENT: Head is normocephalic and atraumatic. Pupils are equal and reactive. There is no throat erythema. NECK: Does not show raised JVP, asymmetry, mass or lymph nodes. CHEST: Symmetrical expansion on inspection and palpation. On auscultation, breath sounds are diminished at bilateral lung bases. The rest of the chest is clear. HEART: Regular. There is no murmur. ABDOMEN: Soft and nontender. EXTREMITIES: Lower extremities show trace edema, no calf tenderness. SKIN: Dry and intact. NEUROLOGICAL: She did move all extremities bilaterally equally and spontaneously with no focal deficit identified. LABORATORY DATA: The patient's chest x-ray is reviewed. This is consistent with fluid overload. Due to the presence of fluid overload, superimposed pneumonia cannot be ruled out. The patient's CBC as well as chemistries from yesterday and previously in [facility] were reviewed. Arterial blood gas initially showed acute hypoxemic respiratory failure in [facility] reviewed. Her initial COVID-19 screen was negative. Thoracentesis results as above. Abnormal urinalysis on admission as above reviewed. [address] [address] CONSULTATION Name: KRISTY UPTON Room: [address]#: [id number] Admission: 11/19/19 Attend Phys: Ravinder Rosas Discharge: 12/10/19 Date of : 59 Report #: [id number] ASSESSMENT AND PLAN: 1. Acute systolic congestive heart failure with fluid overload. The chronicity of the patient's heart failure is not fully apparent to me. She does appear to have this present on x-rays during this admission. At this time, the findings of the patient's chest x-ray, likely still are secondary to fluid overload. She is due for hemodialysis tomorrow. I understand she will have fluid removal. We will repeat a chest x-ray subsequently and then reassess. The patient may have a high fluid intake as well as, recommend touching base with Nephrology regarding the amount of fluid the patient should be ingesting. 2. Pulmonary infiltrates/possible aspiration pneumonia. The patient currently is on Zosyn. We will be reevaluate after fluid is removed with hemodialysis tomorrow. If findings persist, then a repeat CT chest can be considered. 3. End-stage renal disease, on hemodialysis. 4. Pleural effusions, last thoracentesis consistent with transudate based on protein, but reported to be hemorrhagic. 5. Suspected central/obstructive sleep apnea, it will be unlikely the patient is able to wear a CPAP or BiPAP; however, I recommend obtaining a nocturnal pulse oximetry prior to her discharge and placing her on oxygen while asleep. If indicated previously, the patient has used oxygen during the day as well. Currently, she is on room air. 6. Upper gastrointestinal bleed/esophageal ulcer. GI service is on the case. 7. Recent upper extremity deep venous thrombosis. We will try to get more information regarding this and see if we need to repeat Dopplers. The patient until recently was on Eliquis, which is now on hold, I understand due to upper gastrointestinal bleed. 8. Severe malnutrition. Albumin noted to be 1.4. 9. Elevated troponin I as above. Thanks for this consultation. <ELECTRONICALLY SIGNED> By: Gio Hahn MD 12/12/19 1311 1825 [id number] Hahn MD /nt
--- NOTE | 2019-12-12 18:45 | CON ---
[address] [address] CONSULTATION Name: KRISTY UPTON Room: [address] IN M.R.#: [id number] Admission: 11/19/19 Attend Phys: Ravinder Rosas Discharge: 12/10/19 Date of : 59 Report #: [id number] THIS REPORT FOR: //name// cc: Vivian Alegre Angela Jo RNP ~ THIS REPORT FOR: //name// CC: Vivian Butts DATE OF SERVICE: 11/22/2019 HISTORY OF PRESENT ILLNESS: This is a 64-year-old female patient who was evaluated by me for altered mental status. When I saw this patient, she was not doing anything for me. She would not talk. I talked to the dialysis nurse who have seen this patient and she said there has been a pretty significant deterioration. I called the patient's who is actually in the hospital for a blood clot according to him, he is admitted here. He says the patient has been like this for the last several months, he estimates 6-8 months, her mentation is not proper, she cannot say things properly. Her memory is poor. He said all the workup was done in [place] and I do not have that workup. REVIEW OF SYSTEMS: Also positive for cardiac arrest on 11/04 as per records. She also had a low oxygen saturation. She takes oxygen at home. She has a history of hyperlipidemia, diabetes, hypertension and renal failure. She is being followed by multiple consultants. That was a relevant 14-point review of system. PAST MEDICAL HISTORY: Positive for what looks like a cardiac arrest in [place]. FAMILY HISTORY: Noncontributory. SOCIAL HISTORY: According to the she does not drink or smoke. PHYSICAL EXAMINATION: Her examination was attempted. She did not say a single word for me. It looks like she has talked to other providers. Cranial nerve examination 2-12 was attempted, but she did not cooperate. I cannot tell if she moves anything, I cannot check the reflexes because she did not cooperate. She does appear to be short of breath. She is getting the dialysis. Pulse is 75, blood pressure is 134/74, temperature is 97.5. Cardiology note was reviewed. She has a pretty significant cardiac disease. Pulses are difficult to feel. IMPRESSION: Pretty difficult to form in this patient. It looks like this patient has dementia with some encephalopathy with multior[place] [address] CONSULTATION Name: KRISTY UPTON Room: [address] IN [facility].#: [id number] Admission: 11/19/19 Attend Phys: Ravinder Rosas Discharge: 12/10/19 Date of : 59 Report #: [id number] been ordered and I will look at the CT, I will also get an EEG done. I told the family that they need to decide how aggressive they want to be with this patient who has multiple medical problems. Thank you very much for this referral. <ELECTRONICALLY SIGNED> By: Geoffrey Phipps MD 12/12/19 1845 1643 [id number] Phipps MD /nt
--- NOTE | 2019-12-12 18:46 | EEG ---
[address] [address] EEG STUDY REPORT Name: KRISTY UPTON Room: [address] IN .R.#: [id number] Admission: 11/19/19 Attend Phys: Ravinder Rosas Discharge: 12/10/19 Date of : 59 Report #: [id number] THIS REPORT FOR: //name// CC: Vivian Butts DATE OF SERVICE: 11/26/2019 This patient is being evaluated for altered mental status. EEG was done by placing the electrode by standard 10-20 system of electrode placement. Both referential and sequential montages were used for recording. Background activity in this patient's EEG is about 7 Hz and 30 microvolts. It is a poorly formed background activity. The patient went to sleep that is associated with bilateral slowing and vertex sharp waves. Throughout the record, no active epileptiform activity was noticed. IMPRESSION: This is an abnormal EEG because it is disorganized and poorly formed. That is a nonspecific abnormality, which can occur with encephalopathy, effect of psychotropic medication, dementia, etc. Clinical correlation is recommended. <ELECTRONICALLY SIGNED> By: Geoffrey Phipps MD 12/12/19 1846 0950 [id number] Phipps MD /nt
== END 2019-12-10 18:10 | DRG 871 ==
LOC: M.ERS 08:26 → M.ICU 11:26 → M.TBA-ER 11:26 → M.2W 11:26 → M.ICU 12-02 14:11 → M.2W 12-04 22:10
PROVIDERS: Family Medicine; Internal Medicine; Internal Medicine Critical Care Medicine; Internal Medicine Nephrology; Registered Nurse; ADMIT Internal Medicine; ATTEND Internal Medicine
PROC: 0W993ZX Drainage of Right Pleural Cavity, Percutaneous Approach, Diagnostic (ICD-10-PCS; principal; 2019-11-19)
PROC: 5A1D70Z Performance of Urinary Filtration, Intermittent, Less than 6 Hours Per Day (ICD-10-PCS; principal; 2019-11-19)
PROC: 5A1D70Z Performance of Urinary Filtration, Intermittent, Less than 6 Hours Per Day (ICD-10-PCS; 2019-11-20)
PROC: 5A09357 Assistance with Respiratory Ventilation, Less than 24 Consecutive Hours, Continuous Positive Airway Pressure (ICD-10-PCS; 2019-11-20)
PROC: 5A09357 Assistance with Respiratory Ventilation, Less than 24 Consecutive Hours, Continuous Positive Airway Pressure (ICD-10-PCS; 2019-11-21)
PROC: 5A1D70Z Performance of Urinary Filtration, Intermittent, Less than 6 Hours Per Day (ICD-10-PCS; 2019-11-22)
PROC: 5A09357 Assistance with Respiratory Ventilation, Less than 24 Consecutive Hours, Continuous Positive Airway Pressure (ICD-10-PCS; 2019-11-22)
PROC: 5A1D70Z Performance of Urinary Filtration, Intermittent, Less than 6 Hours Per Day (ICD-10-PCS; 2019-11-25)
PROC: 5A1D70Z Performance of Urinary Filtration, Intermittent, Less than 6 Hours Per Day (ICD-10-PCS; 2019-11-26)
PROC: 5A1D70Z Performance of Urinary Filtration, Intermittent, Less than 6 Hours Per Day (ICD-10-PCS; 2019-11-27)
PROC: 5A1D70Z Performance of Urinary Filtration, Intermittent, Less than 6 Hours Per Day (ICD-10-PCS; 2019-11-29)
PROC: 5A1D70Z Performance of Urinary Filtration, Intermittent, Less than 6 Hours Per Day (ICD-10-PCS; 2019-12-02)
PROC: 5A1D70Z Performance of Urinary Filtration, Intermittent, Less than 6 Hours Per Day (ICD-10-PCS; 2019-12-04)
PROC: 0DJ08ZZ Inspection of Upper Intestinal Tract, Via Natural or Artificial Opening Endoscopic (ICD-10-PCS; 2019-12-05)
PROC: 5A1D70Z Performance of Urinary Filtration, Intermittent, Less than 6 Hours Per Day (ICD-10-PCS; 2019-12-06)
PROC: 02HV33Z Insertion of Infusion Device into Superior Vena Cava, Percutaneous Approach (ICD-10-PCS; 2019-12-06)
PROC: 0DJ08ZZ Inspection of Upper Intestinal Tract, Via Natural or Artificial Opening Endoscopic (ICD-10-PCS; 2019-12-09)
PROC: 5A1D70Z Performance of Urinary Filtration, Intermittent, Less than 6 Hours Per Day (ICD-10-PCS; 2019-12-09)
PROC: 30233N1 Transfusion of Nonautologous Red Blood Cells into Peripheral Vein, Percutaneous Approach (ICD-10-PCS; 2019-12-09)
DX: A41.9 Sepsis, unspecified organism (principal); J69.0 Pneumonitis due to inhalation of food and vomit; J96.01 Acute respiratory failure with hypoxia; N18.6 End stage renal disease; K22.11 Ulcer of esophagus with bleeding; E43 Unspecified severe protein-calorie malnutrition; G93.41 Metabolic encephalopathy; I63.89 Other cerebral infarction; I21.4 Non-ST elevation (NSTEMI) myocardial infarction; K66.1 Hemoperitoneum; I50.23 Acute on chronic systolic (congestive) heart failure; N17.9 Acute kidney failure, unspecified; N39.0 Urinary tract infection, site not specified; J44.1 Chronic obstructive pulmonary disease with (acute) exacerbation; J44.0 Chronic obstructive pulmonary disease with (acute) lower respiratory infection; J90 Pleural effusion, not elsewhere classified; I82.622 Acute embolism and thrombosis of deep veins of left upper extremity; E87.1 Hypo-osmolality and hyponatremia; G93.1 Anoxic brain damage, not elsewhere classified; I13.0 Hypertensive heart and chronic kidney disease with heart failure and stage 1 through stage 4 chronic kidney disease, or unspecified chronic kidney disease; Z82.49 Family history of ischemic heart disease and other diseases of the circulatory system; Z99.81 Dependence on supplemental oxygen; E11.22 Type 2 diabetes mellitus with diabetic chronic kidney disease; E78.5 Hyperlipidemia, unspecified; I27.20 Pulmonary hypertension, unspecified; D63.8 Anemia in other chronic diseases classified elsewhere; D69.6 Thrombocytopenia, unspecified; K21.9 Gastro-esophageal reflux disease without esophagitis; I25.5 Ischemic cardiomyopathy; I25.10 Atherosclerotic heart disease of native coronary artery without angina pectoris; M48.02 Spinal stenosis, cervical region; R13.10 Dysphagia, unspecified; F32.9 Major depressive disorder, single episode, unspecified; K64.8 Other hemorrhoids; K56.41 Fecal impaction; D64.9 Anemia, unspecified; Z20.828 Contact with and (suspected) exposure to other viral communicable diseases; I25.2 Old myocardial infarction; Z68.20 Body mass index [BMI] 20.0-20.9, adult; Z79.82 Long term (current) use of aspirin; Z79.4 Long term (current) use of insulin; Z79.891 Long term (current) use of opiate analgesic; Z79.899 Other long term (current) drug therapy; Z88.8 Allergy status to other drugs, medicaments and biological substances; Z99.2 Dependence on renal dialysis; Z83.3 Family history of diabetes mellitus

== ENCOUNTER 2019-12-10 16:27 | Inpatient (IN) | payer OTHER ==
[~2019-12-10] VITALS: Ht 162.6 cm; Wt 51.2 kg
[~2019-12-10 16:27] MED LIST: AFRIN15 ML NASAL; ALBUTEROL2.5 MG/31 INH; ASA81BEC PO; ATROPINE SULFATE2 ML OPHTHALMIC; BRILINTA90 MG PO; CALCIUM CARBON500 MG PO; COREG6.25 MG PO; DEEP SEA NASAL44 M1 NASAL; ELIQUIS2.5 MG PO; EPOGEN2000 UNIT/ IVPUSH; FUROSEMIDE 20 M20 MG PO; HUMALOG100 UNIT/1 SUBQ; HUMULIN N100 UNIT/1 SUBQ; HYDROCODON-ACE1 EAC7 PO; IMDUR 30 MG TAB30 M1 PO; IPRAT-ALBUT 0.5-3 ML INH; ISOSORBIDE MONO10 MG PO; LIPITOR 20 MG T20 M1 PO; LIPITOR 40 MG T40 M1 PO; LORAZEPAM I2 MG/1 ML PO; MIDODRINE HCL 55 M1 PO; MILK OF MA400 MG/5 M PO; MSL20MG/ML PO; NORVASC 2.5 MG2.5 M1 PO; PEPCID20 MG PO; PROCARDIA XL60 MG PO; PROTONIX40 M3 PO; REGLAN 10 MG TA10 MG PO; SEROQUEL 25 MG25 M1 PO; TRAMADOL 50 MG50 MG PO; TYLENOL325 MG PO; VISINE ALLERGY15 ML OPHTHALMIC
[2019-12-10 19:00] VITALS: BP 153/89
[2019-12-11 04:11] LABS: HEMATOCRIT 24.6 % (37.0-47.0); HEMOGLOBIN 8.4 gm/dL (12.0-15.0); MCH 30.2 pg (26.0-34.0); MCHC 34.1 g/dL (28.0-37.0); MCV 88.7 fL (80.0-100.0); RBC 2.77 mil/uL (4.20-5.00); RDW-CV 19.5 % (10.5-14.5); WBC 12.4 thou/uL (4.0-11.0)
[2019-12-11 04:33] LABS: CALCIUM 7.9 mg/dL (8.5-10.1); POTASSIUM 3.6 mmol/L (3.5-5.1)
[2019-12-11 04:48] LABS: CREATININE 4.1 mg/dL (0.6-1.3)
[2019-12-11 08:00] VITALS: BP 156/95
[2019-12-11 13:30] VITALS: BP 158/92
[2019-12-11 14:20] VITALS: BP 146/90
[2019-12-11 22:15] VITALS: BP 150/95
[2019-12-12 08:30] VITALS: BP 191/100
[2019-12-12 20:21] VITALS: BP 166/91
[2019-12-13 05:36] LABS: HEMATOCRIT 25.8 % (37.0-47.0); HEMOGLOBIN 8.8 gm/dL (12.0-15.0); MCH 30.7 pg (26.0-34.0); MCHC 34.2 g/dL (28.0-37.0); MCV 89.7 fL (80.0-100.0); MPV 9.8 fl. (7.2-11.1); RBC 2.88 mil/uL (4.20-5.00); RDW-CV 19.8 % (10.5-14.5); WBC 12.6 thou/uL (4.0-11.0)
[2019-12-13 05:53] LABS: ALBUMIN 1.6 g/dL (3.4-5.0); CALCIUM 7.8 mg/dL (8.5-10.1); CREATININE 3.2 mg/dL (0.6-1.3); POTASSIUM 3.7 mmol/L (3.5-5.1); TOTAL BILIRUBIN 0.5 mg/dL (<0.1-1.0); TOTAL PROTEIN 5.5 g/dL (6.4-8.2)
[2019-12-13 06:08] LABS: % SATURATION 28 % (20-39); IRON 46 ug/dL (50-175)
[2019-12-13 07:46] VITALS: BP 154/88
[2019-12-13 20:12] VITALS: BP 140/78
[2019-12-14 07:00] VITALS: BP 160/77
[2019-12-14 21:00] VITALS: BP 129/55
[2019-12-15 08:30] VITALS: BP 166/94
[2019-12-15 20:00] VITALS: BP 157/89
[2019-12-16 08:30] VITALS: BP 155/89
[2019-12-16 12:13] LABS: HEMATOCRIT 26.9 % (37.0-47.0); HEMOGLOBIN 8.9 gm/dL (12.0-15.0)
[2019-12-16 12:25] LABS: ALBUMIN 1.9 g/dL (3.4-5.0); CALCIUM 8.4 mg/dL (8.5-10.1); CREATININE 4.7 mg/dL (0.6-1.3); PHOSPHORUS* 3.1 mg/dL (2.5-4.9); POTASSIUM 4.1 mmol/L (3.5-5.1)
[2019-12-16 19:00] VITALS: BP 145/80
[2019-12-17 04:53] LABS: HEMATOCRIT 26.4 % (37.0-47.0); MCHC 34.2 g/dL (28.0-37.0); MCV 90.7 fL (80.0-100.0); MPV 9.2 fl. (7.2-11.1); RBC 2.91 mil/uL (4.20-5.00); RDW-CV 21.5 % (10.5-14.5); WBC 9.7 thou/uL (4.0-11.0)
[2019-12-17 05:27] LABS: CALCIUM 7.5 mg/dL (8.5-10.1); POTASSIUM 4.1 mmol/L (3.5-5.1)
[2019-12-17 05:34] LABS: CREATININE 2.8 mg/dL (0.6-1.3)
[2019-12-17 07:54] VITALS: BP 151/90
[2019-12-17 19:00] VITALS: BP 145/84
[2019-12-18 07:30] VITALS: BP 160/91
[2019-12-18 19:00] VITALS: BP 146/79
[2019-12-19 08:00] VITALS: BP 153/82
[2019-12-19 19:55] VITALS: BP 139/70
[2019-12-20 08:00] VITALS: BP 146/87
[2019-12-20 19:59] VITALS: BP 153/75
[2019-12-21 08:00] VITALS: BP 146/75
[2019-12-21 08:50] VITALS: BP 145/83
[2019-12-21 20:00] VITALS: BP 135/64
[2019-12-22 04:41] LABS: HEMATOCRIT 24.6 % (37.0-47.0); HEMOGLOBIN 8.3 gm/dL (12.0-15.0); MCH 30.1 pg (26.0-34.0); MCHC 33.6 g/dL (28.0-37.0); MCV 89.7 fL (80.0-100.0); MPV 9.4 fl. (7.2-11.1); RBC 2.74 mil/uL (4.20-5.00); RDW-CV 20.2 % (10.5-14.5); WBC 18.9 thou/uL (4.0-11.0)
[2019-12-22 05:02] LABS: ALBUMIN 1.5 g/dL (3.4-5.0); CALCIUM 7.8 mg/dL (8.5-10.1); CREATININE 3.3 mg/dL (0.6-1.3); POTASSIUM 4.9 mmol/L (3.5-5.1); TOTAL BILIRUBIN 0.6 mg/dL (<0.1-1.0); TOTAL PROTEIN 5.5 g/dL (6.4-8.2)
[2019-12-22 08:00] VITALS: BP 114/75
[2019-12-22 08:58] LABS: URINE BLOOD 3+ (Negative); URINE CLARITY CLOUDY; URINE COLOR YELLOW; URINE GLUCOSE-RANDOM NEGATIVE (Negative); URINE KETONES NEGATIVE (Negative); URINE LEUKOCYTES-REFLEX 1+ (Negative); URINE NITRITE-REFLEX NEGATIVE (Negative); URINE PROTEIN 2+ (Negative); URINE SPECIFIC GRAVITY 1.025 (1.005-1.030); URINE UROBILINOGEN 0.2 E.U./dl (0.2-1.0)
[2019-12-22 09:04] LABS: ICTOTEST (BILI CONFIRMATORY) Positive (Negative); URINE BILIRUBIN 1+ (Negative)
[2019-12-22 09:12] LABS: AMORPHOUS URATES Many /LPF (None Seen); BACTERIA-REFLEX >30 Many /HPF (None Seen); CASTS None Seen /LPF (None Seen); CRYSTALS None Seen /LPF (None Seen); MUCUS None Seen strn/LPF (None Seen); SQUAMOUS 4-10 Moderate /LPF (0-3); URINE RBC 3-10 Few /HPF (0-2); URINE WBC-REFLEX 0-5 Rare /HPF (0-5)
[2019-12-22 19:46] VITALS: BP 156/74
[2019-12-23 04:04] LABS: MCH 29.8 pg (26.0-34.0); MCHC 33.3 g/dL (28.0-37.0); MCV 89.5 fL (80.0-100.0); MPV 9.5 fl. (7.2-11.1); RBC 3.02 mil/uL (4.20-5.00); RDW-CV 20.3 % (10.5-14.5); WBC 22.5 thou/uL (4.0-11.0)
[2019-12-23 04:27] LABS: ALBUMIN 1.5 g/dL (3.4-5.0); CALCIUM 8.1 mg/dL (8.5-10.1); PHOSPHORUS* 3.5 mg/dL (2.5-4.9); POTASSIUM 5.2 mmol/L (3.5-5.1)
[2019-12-23 07:00] VITALS: BP 163/85
[2019-12-23 07:58] VITALS: BP 163/85
[2019-12-23 19:00] VITALS: BP 178/79
[2019-12-24 04:54] LABS: ABSOLUTE BASOPHILS 0.1 thou/uL (0.0-0.2); ABSOLUTE EOSINOPHILS 0.1 thou/uL (0.0-0.7); ABSOLUTE LYMPHOCYTES 1.6 thou/uL (0.8-5.3); ABSOLUTE MONOCYTES 1.5 thou/uL (0.0-1.2); BASOPHILS 0.3 %; EOSINOPHILS 0.7 %; HEMATOCRIT 26.6 % (37.0-47.0); HEMOGLOBIN 8.9 gm/dL (12.0-15.0); LYMPHOCYTES 8.9 %; MCH 29.7 pg (26.0-34.0); MCHC 33.6 g/dL (28.0-37.0); MCV 88.4 fL (80.0-100.0); MONOCYTES 8.1 %; MPV 9.7 fl. (7.2-11.1); NUCLEATED RBCS 0 /100WBC; PLATELET COUNT* 422 thou/uL (150-400); RBC 3.01 mil/uL (4.20-5.00); RDW-CV 19.7 % (10.5-14.5); WBC 18.2 thou/uL (4.0-11.0)
[2019-12-24 05:19] LABS: MAGNESIUM 1.9 mg/dL (1.8-2.4)
[2019-12-24 05:20] LABS: CREATININE 2.4 mg/dL (0.6-1.3)
[2019-12-24 07:32] VITALS: BP 143/101
[2019-12-24 19:00] VITALS: BP 130/65
[2019-12-25 07:00] VITALS: BP 152/79
[2019-12-25 20:04] VITALS: BP 155/79
[2019-12-26 04:28] LABS: ABSOLUTE BASOPHILS 0.1 thou/uL (0.0-0.2); ABSOLUTE EOSINOPHILS 0.1 thou/uL (0.0-0.7); ABSOLUTE LYMPHOCYTES 1.6 thou/uL (0.8-5.3); ABSOLUTE MONOCYTES 1.2 thou/uL (0.0-1.2); ABSOLUTE NEUTROPHILS 13.7 thou/uL (1.6-8.1); BASOPHILS 0.6 %; EOSINOPHILS 0.7 %; HEMATOCRIT 27.2 % (37.0-47.0); LYMPHOCYTES 9.8 %; MCH 29.4 pg (26.0-34.0); MCV 88.9 fL (80.0-100.0); MONOCYTES 7.4 %; MPV 9.3 fl. (7.2-11.1); NUCLEATED RBCS 0 /100WBC; PLATELET COUNT* 434 thou/uL (150-400); POLYS 81.5 %; RBC 3.06 mil/uL (4.20-5.00); RDW-CV 20.1 % (10.5-14.5); WBC 16.8 thou/uL (4.0-11.0)
[2019-12-26 07:38] LABS: ANISOCYTOSIS 1+; PLATELET ESTIMATE ADEQUATE
[2019-12-26 08:14] VITALS: BP 167/81
[2019-12-26 20:07] VITALS: BP 181/88
[2019-12-27 06:05] LABS: ABSOLUTE BASOPHILS 0.1 thou/uL (0.0-0.2); ABSOLUTE EOSINOPHILS 0.2 thou/uL (0.0-0.7); ABSOLUTE LYMPHOCYTES 1.7 thou/uL (0.8-5.3); ABSOLUTE MONOCYTES 1.1 thou/uL (0.0-1.2); ABSOLUTE NEUTROPHILS 11.5 thou/uL (1.6-8.1); BASOPHILS 0.7 %; EOSINOPHILS 1.1 %; HEMATOCRIT 30.6 % (37.0-47.0); HEMOGLOBIN 10.2 gm/dL (12.0-15.0); LYMPHOCYTES 11.5 %; MCH 29.5 pg (26.0-34.0); MCHC 33.4 g/dL (28.0-37.0); MCV 88.5 fL (80.0-100.0); MONOCYTES 7.4 %; MPV 8.7 fl. (7.2-11.1); NUCLEATED RBCS 0 /100WBC; PLATELET COUNT* 474 thou/uL (150-400); POLYS 79.3 %; RBC 3.46 mil/uL (4.20-5.00); RDW-CV 19.6 % (10.5-14.5); WBC 14.5 thou/uL (4.0-11.0)
[2019-12-27 06:28] LABS: ALBUMIN 1.5 g/dL (3.4-5.0); CALCIUM 8.3 mg/dL (8.5-10.1); CREATININE 3.3 mg/dL (0.6-1.3); POTASSIUM 4.3 mmol/L (3.5-5.1); TOTAL BILIRUBIN 0.6 mg/dL (<0.1-1.0); TOTAL PROTEIN 6.5 g/dL (6.4-8.2)
[2019-12-27 08:08] VITALS: BP 169/80
[2019-12-27 20:00] VITALS: BP 163/90
[2019-12-28 07:02] LABS: ALBUMIN 1.4 g/dL (3.4-5.0); POTASSIUM 3.9 mmol/L (3.5-5.1); TOTAL BILIRUBIN 0.6 mg/dL (<0.1-1.0); TOTAL PROTEIN 6.4 g/dL (6.4-8.2)
[2019-12-28 07:03] LABS: CREATININE 2.3 mg/dL (0.6-1.3)
[2019-12-28 08:30] VITALS: BP 174/92
[2019-12-28 10:17] LABS: ABSOLUTE BASOPHILS 0.1 thou/uL (0.0-0.2); ABSOLUTE EOSINOPHILS 0.1 thou/uL (0.0-0.7); ABSOLUTE LYMPHOCYTES 1.3 thou/uL (0.8-5.3); ABSOLUTE MONOCYTES 1.2 thou/uL (0.0-1.2); ABSOLUTE NEUTROPHILS 13.3 thou/uL (1.6-8.1); BASOPHILS 0.7 %; EOSINOPHILS 0.9 %; HEMATOCRIT 28.9 % (37.0-47.0); HEMOGLOBIN 9.5 gm/dL (12.0-15.0); LYMPHOCYTES 8.4 %; MCH 29.3 pg (26.0-34.0); MCHC 32.7 g/dL (28.0-37.0); MCV 89.6 fL (80.0-100.0); MONOCYTES 7.2 %; MPV 8.6 fl. (7.2-11.1); NUCLEATED RBCS 0 /100WBC; POLYS 82.8 %; RBC 3.23 mil/uL (4.20-5.00); RDW-CV 19.6 % (10.5-14.5)
[2019-12-28 10:21] LABS: PLATELET COUNT* 395 thou/uL (150-400)
[2019-12-28 19:00] VITALS: BP 172/86
[2019-12-29 08:00] VITALS: BP 176/96
[2019-12-29 19:29] VITALS: BP 139/74
[2019-12-30 07:00] VITALS: BP 167/85
[2019-12-30 08:30] VITALS: BP 167/85
[2019-12-30 19:00] VITALS: BP 160/85
[2019-12-31 07:30] VITALS: BP 156/91
[2019-12-31 19:00] VITALS: BP 167/97
[2020-01-01 07:30] VITALS: BP 169/105
[2020-01-01 08:04] VITALS: BP 169/85
[2020-01-01 19:00] VITALS: BP 167/101
[2020-01-02 08:00] VITALS: BP 159/96
[2020-01-02 09:12] VITALS: BP 159/96
[2020-01-02] MEDS ORDERED: DULCOLAX10 MG RECTAL ×2 (09:34)
[2020-01-02] MEDS ORDERED: LINEZOLID600 MG PO ×2 (09:52)
[2020-01-02 10:11] LABS: HEMATOCRIT 29.9 % (37.0-47.0); HEMOGLOBIN 9.5 gm/dL (12.0-15.0); MCH 28.7 pg (26.0-34.0); MCHC 31.8 g/dL (28.0-37.0); MCV 90.3 fL (80.0-100.0); MPV 8.6 fl. (7.2-11.1); RBC 3.31 mil/uL (4.20-5.00); RDW-CV 19.8 % (10.5-14.5)
[2020-01-02 10:23] LABS: CALCIUM 8.3 mg/dL (8.5-10.1); CREATININE 2.9 mg/dL (0.6-1.3); POTASSIUM 4.2 mmol/L (3.5-5.1)
[2020-01-02 10:28] LABS: ALBUMIN 1.7 g/dL (3.4-5.0); TOTAL BILIRUBIN 0.5 mg/dL (<0.1-1.0); TOTAL PROTEIN 6.8 g/dL (6.4-8.2)
[2020-01-02 12:34] LABS: INR 1.1; PROTIME 11.2 Seconds (9.20-11.50)
== END 2020-01-02 13:38 | disposition short-term general hospital (02) | DRG 64 ==
LOC: M.REH 16:27
PROVIDERS: Family Medicine; Internal Medicine; Internal Medicine Nephrology; Nurse Practitioner; Nurse Practitioner Adult Health; ADMIT Physical Medicine & Rehabilitation; ATTEND Physical Medicine & Rehabilitation
PROC: 5A1D70Z Performance of Urinary Filtration, Intermittent, Less than 6 Hours Per Day (ICD-10-PCS; principal; 2019-12-11)
PROC: 5A1D70Z Performance of Urinary Filtration, Intermittent, Less than 6 Hours Per Day (ICD-10-PCS; 2019-12-13)
PROC: 5A1D70Z Performance of Urinary Filtration, Intermittent, Less than 6 Hours Per Day (ICD-10-PCS; 2019-12-16)
PROC: 5A1D70Z Performance of Urinary Filtration, Intermittent, Less than 6 Hours Per Day (ICD-10-PCS; 2019-12-18)
PROC: 5A1D70Z Performance of Urinary Filtration, Intermittent, Less than 6 Hours Per Day (ICD-10-PCS; 2019-12-20)
PROC: 5A1D70Z Performance of Urinary Filtration, Intermittent, Less than 6 Hours Per Day (ICD-10-PCS; 2019-12-23)
PROC: 5A1D70Z Performance of Urinary Filtration, Intermittent, Less than 6 Hours Per Day (ICD-10-PCS; 2019-12-25)
PROC: 5A1D70Z Performance of Urinary Filtration, Intermittent, Less than 6 Hours Per Day (ICD-10-PCS; 2020-01-01)
DX: I63.9 Cerebral infarction, unspecified (principal); G93.41 Metabolic encephalopathy; I50.23 Acute on chronic systolic (congestive) heart failure; J69.0 Pneumonitis due to inhalation of food and vomit; E43 Unspecified severe protein-calorie malnutrition; J96.01 Acute respiratory failure with hypoxia; I21.A1 Myocardial infarction type 2; N18.6 End stage renal disease; I13.2 Hypertensive heart and chronic kidney disease with heart failure and with stage 5 chronic kidney disease, or end stage renal disease; N39.0 Urinary tract infection, site not specified; Z68.1 Body mass index [BMI] 19.9 or less, adult; G93.1 Anoxic brain damage, not elsewhere classified; Z16.21 Resistance to vancomycin; E78.5 Hyperlipidemia, unspecified; K21.9 Gastro-esophageal reflux disease without esophagitis; F32.9 Major depressive disorder, single episode, unspecified; I27.20 Pulmonary hypertension, unspecified; R04.0 Epistaxis; E11.22 Type 2 diabetes mellitus with diabetic chronic kidney disease; B96.89 Other specified bacterial agents as the cause of diseases classified elsewhere; I25.10 Atherosclerotic heart disease of native coronary artery without angina pectoris; D63.1 Anemia in chronic kidney disease; D69.6 Thrombocytopenia, unspecified; M48.02 Spinal stenosis, cervical region; F03.90 Unspecified dementia, unspecified severity, without behavioral disturbance, psychotic disturbance, mood disturbance, and anxiety; E86.0 Dehydration; R62.7 Adult failure to thrive; R26.9 Unspecified abnormalities of gait and mobility; Z88.1 Allergy status to other antibiotic agents; Z88.8 Allergy status to other drugs, medicaments and biological substances; Z86.74 Personal history of sudden cardiac arrest; Z79.899 Other long term (current) drug therapy; Z79.4 Long term (current) use of insulin; Z79.82 Long term (current) use of aspirin; Z83.3 Family history of diabetes mellitus; Z82.49 Family history of ischemic heart disease and other diseases of the circulatory system; I25.2 Old myocardial infarction; Z86.718 Personal history of other venous thrombosis and embolism; Z99.2 Dependence on renal dialysis

== ENCOUNTER 2020-01-02 14:20 | Inpatient (IN) | payer OTHER ==
[~2020-01-02] VITALS: Ht 162.6 cm; Wt 48.2 kg
--- NOTE | ~2020-01-02 | PROC ---
[facility] [address] [place] [address] PROCEDURE REPORT Name: KRISTY UPTON Room: [address] IN M.R.#: [id number] Admission: 01/02/20 Attend Phys: Juancarlos Alejo, Discharge: Date of : 59 Report #: [id number] THIS REPORT FOR: //name// cc: Vivian Alegre Angela Jo RNP ~ THIS REPORT FOR: //name// For GI report, please see the Provation report in Perceptive 7 content. By: 0657Medical Records Staff TEDDY /ISABEL
[~2020-01-02 14:20] MED LIST changes: +DULCOLAX10 MG RECTAL; +LINEZOLID600 MG PO
[2020-01-02 16:00] VITALS: BP 142/83
[2020-01-02 19:40] VITALS: BP 153/84
[2020-01-03] VITALS: BP 158/92
[2020-01-03 04:00] VITALS: BP 159/88
[2020-01-03 05:10] LABS: HEMATOCRIT 28.6 % (37.0-47.0); HEMOGLOBIN 9.3 gm/dL (12.0-15.0); MCH 29.4 pg (26.0-34.0); MCHC 32.7 g/dL (28.0-37.0); MCV 89.8 fL (80.0-100.0); MPV 8.8 fl. (7.2-11.1); RBC 3.18 mil/uL (4.20-5.00); WBC 11.7 thou/uL (4.0-11.0)
[2020-01-03 05:27] LABS: ALBUMIN 1.7 g/dL (3.4-5.0); CALCIUM 8.1 mg/dL (8.5-10.1); CREATININE 3.5 mg/dL (0.6-1.3); MAGNESIUM 2.1 mg/dL (1.8-2.4); POTASSIUM 4.6 mmol/L (3.5-5.1); TOTAL BILIRUBIN 0.5 mg/dL (<0.1-1.0); TOTAL PROTEIN 6.6 g/dL (6.4-8.2)
[2020-01-03 08:25] VITALS: BP 155/88
[2020-01-03 13:40] VITALS: BP 157/92
[2020-01-03 21:15] VITALS: BP 165/90
[2020-01-04] VITALS: BP 156/89
[2020-01-04 04:00] VITALS: BP 165/93
[2020-01-04 04:52] LABS: HEMOGLOBIN 9.8 gm/dL (12.0-15.0); MCH 29.7 pg (26.0-34.0); MCHC 32.6 g/dL (28.0-37.0); MPV 9.2 fl. (7.2-11.1); RBC 3.3 mil/uL (4.20-5.00); RDW-CV 19.8 % (10.5-14.5); WBC 14.3 thou/uL (4.0-11.0)
[2020-01-04 06:42] LABS: ALBUMIN 1.7 g/dL (3.4-5.0); CALCIUM 8.6 mg/dL (8.5-10.1); TOTAL BILIRUBIN 0.5 mg/dL (<0.1-1.0); TOTAL PROTEIN 6.8 g/dL (6.4-8.2)
[2020-01-04 06:43] LABS: CREATININE 2.3 mg/dL (0.6-1.3)
[2020-01-04 08:00] VITALS: BP 160/78
[2020-01-04 12:00] VITALS: BP 152/83
[2020-01-04 16:00] VITALS: BP 160/81
[2020-01-04 20:00] VITALS: BP 133/74
[2020-01-05] VITALS: BP 143/79
[2020-01-05 04:30] VITALS: BP 147/79
[2020-01-05 04:50] LABS: HEMATOCRIT 29.6 % (37.0-47.0); HEMOGLOBIN 9.6 gm/dL (12.0-15.0); MCH 29.3 pg (26.0-34.0); MCHC 32.4 g/dL (28.0-37.0); MCV 90.3 fL (80.0-100.0); MPV 9.6 fl. (7.2-11.1); RBC 3.27 mil/uL (4.20-5.00); RDW-CV 19.9 % (10.5-14.5)
[2020-01-05 05:20] LABS: ALBUMIN 1.7 g/dL (3.4-5.0); CALCIUM 8.4 mg/dL (8.5-10.1); CREATININE 3.2 mg/dL (0.6-1.3); MAGNESIUM 1.9 mg/dL (1.8-2.4); PHOSPHORUS* 4.8 mg/dL (2.5-4.9); POTASSIUM 4.2 mmol/L (3.5-5.1)
[2020-01-05 08:00] VITALS: BP 156/87
[2020-01-05 12:00] VITALS: BP 152/81
[2020-01-05 16:00] VITALS: BP 150/89
[2020-01-05 20:00] VITALS: BP 152/84
[2020-01-06] VITALS: BP 132/74
[2020-01-06 04:00] VITALS: BP 149/90
[2020-01-06 08:00] VITALS: BP 145/82
--- NOTE | 2020-01-06 09:51 | CON ---
[address] [address] CONSULTATION Name: KRISTY UPTON Room: [address] IN .R.#: [id number] Admission: 01/02/20 Attend Phys: Juancarlos Alejo, Discharge: Date of : 59 Report #: [id number] THIS REPORT FOR: //name// cc: Vivian Alegre Angela Jo SIMULATION ANALYST ~ THIS REPORT FOR: //name// DATE OF SERVICE: 01/03/2020 HISTORY OF PRESENT ILLNESS: This is a pleasant 64-year-old female with history of cardiac arrest, CVA, and altered mental status, who has been consulted for PEG tube placement. Since the patient has an altered mental status, most of the history has been obtained from the chart and from the patient's who is at her bedside. It appears that the patient was briefly admitted 2 weeks back for an ecu-qz-ypopakob cardiac arrest associated with respiratory failure and pulmonary edema. Additionally, the patient had a CVA and developed a metabolic encephalopathy with MRI showing embolic CVAs. Over the course of the last few days, the patient's mental status has continued to decline and the patient has not been participating in rehabilitation and has remained n.p.o. The benefits and risks of PEG tube were discussed with her . PAST MEDICAL HISTORY: Cardiac arrest, [place], CVA, hypertension, COPD, CKD. PHYSICAL EXAMINATION: GENERAL: The patient is somnolent and difficult to arouse. HEENT: Mucous membranes are moist. There is no scleral icterus. LUNGS: Clear to auscultation bilaterally. CARDIOVASCULAR: Rate and rhythm regular, S1, S2 present. ABDOMEN: Soft. There is no distention, guarding or rigidity. EXTREMITIES: Warm, well perfused. REVIEW OF SYSTEMS: Unable to obtain review of systems because of the patient's mental status. LABORATORY DATA: Hemoglobin 9.3, hematocrit 28.6, platelet count 255, WBC count 11.7. ASSESSMENT AND PLAN: A 64-year-old female with past medical history significant for hypertension, coronary artery disease, cerebrovascular accident, chronic obstructive pulmonary disease, who has been referred for PEG tube placement. Benefits and risks of PEG tube were discussed with the patient and we will proceed with endoscopic evaluation and possible gastrostomy tube placement. Further recommendations will be [place] [address] CONSULTATION Name: KRISTY UPTON Alisia Room: [address]#: [id number] Admission: 01/02/20 Attend Phys: Juancarlos Alejo, Discharge: Date of : 59 Report #: [id number] Thank you for this consultation. <ELECTRONICALLY SIGNED> By: Jered Jalloh MD 01/06/20 0951 1053 MD joe Alvarado
[2020-01-06 11:57] LABS: HEMATOCRIT 26.4 % (37.0-47.0); HEMOGLOBIN 8.5 gm/dL (12.0-15.0); MCH 29.3 pg (26.0-34.0); MCHC 32.4 g/dL (28.0-37.0); MCV 90.5 fL (80.0-100.0); MPV 9.7 fl. (7.2-11.1); RBC 2.91 mil/uL (4.20-5.00); RDW-CV 19.8 % (10.5-14.5); WBC 13.4 thou/uL (4.0-11.0)
[2020-01-06 12:00] VITALS: BP 147/83
[2020-01-06 20:00] VITALS: BP 103/89
[2020-01-06 23:45] VITALS: BP 157/86
[2020-01-07 04:00] VITALS: BP 153/88
[2020-01-07 08:15] VITALS: BP 155/93
[2020-01-07 11:30] VITALS: BP 160/84
[2020-01-07 14:02] LABS: HEMATOCRIT 28.4 % (37.0-47.0); HEMOGLOBIN 9.1 gm/dL (12.0-15.0); MCH 28.8 pg (26.0-34.0); MCHC 32.1 g/dL (28.0-37.0); MCV 89.9 fL (80.0-100.0); MPV 9.1 fl. (7.2-11.1); RBC 3.16 mil/uL (4.20-5.00); RDW-CV 19.6 % (10.5-14.5); WBC 21.6 thou/uL (4.0-11.0)
[2020-01-07 16:28] VITALS: BP 135/79
[2020-01-07 20:00] VITALS: BP 155/85
[2020-01-07 23:45] VITALS: BP 147/82
[2020-01-08 04:00] VITALS: BP 125/70
[2020-01-08 08:00] VITALS: BP 124/74
[2020-01-08 11:30] VITALS: BP 130/67
[2020-01-08 16:52] VITALS: BP 103/59
--- NOTE | 2020-01-08 18:51 | CON ---
[address] [address] CONSULTATION Name: KRISTY UPTON Room: [address] IN M.R.#: [id number] Admission: 01/02/20 Attend Phys: Juancarlos Alejo, Discharge: Date of : 59 Report #: [id number] THIS REPORT FOR: //name// cc: Vivian Alegre Angela Jo RNP ~ THIS REPORT FOR: //name// DATE OF SERVICE: 01/02/2020 HISTORY OF PRESENT ILLNESS: This is a 64-year-old female patient, who was evaluated by me because apparently the patient is deteriorating. I reviewed large records in the computer for this patient. This patient has numerous intractable problems. She had multiple CVAs in the past. She has cervical spinal stenosis. She apparently is giving up and will not talk, and Dr. Salguero has seen this patient the last time and she has recommended a psychiatric consult. She had a CT scan done today, which demonstrated no acute changes. The patient will not say a single word. She will not cooperate with the examination either. REVIEW OF SYSTEMS: Positive for renal failure, anemia, cardiomyopathy, diabetes, elevated troponin at one time, she is on dialysis, she was having a pulmonary edema at one time. I do not have a list of medications she was on in the rehab. A 14-point review of system is entirely from the records. She has a history of cardiac arrest, diabetes, hyperlipidemia, kidney failure, pulmonary hypertension, hypertension, hypoxia in the past. One of the records says that she used to be on Eliquis and it was discontinued. PAST MEDICAL HISTORY: Positive for multiple intractable problems including multiple strokes, multiple psychiatric problems, cervical stenosis, end-stage renal disease. SOCIAL HISTORY: I had talked to the in the past and I will try to reach this patient's in the morning. PHYSICAL EXAMINATION: NEUROLOGIC: Her examination is pretty limited. She did not say a single word. She will not follow any commands. The only thing I can tell is that she did not move the right side for me, but she did not move the left side for me. I cannot do the sensory or any other examination because the patient will not cooperate. VITAL SIGNS: Noticed. While dictating this, the computer froze and I am not able to look at rest of the data. Blood pressure is 142/83, respirations 18, pulse is 96, temperature is 98.4. LABORATORIES: Indicate blood sugar is 118. IMPRESSION: This patient has numerous problems. [place] [address] CONSULTATION Name: KRISTY UPTON Room: [address] IN M.R.#: [id number] Admission: 01/02/20 Attend Phys: Juancarlos Alejo, Discharge: Date of : 59 Report #: [id number] she had more strokes. I will get an MRI done first. This patient's prognosis is very guarded. I have suggested in the past and I will suggest again that we talk to the to see if we should continue aggressive care or just make her comfort care only. If he wants to be aggressive, C-spine pathology also needs to be addressed and nobody comes here. Thank you very much for this referral. We will talk to admitting physician tomorrow. <ELECTRONICALLY SIGNED> By: Geoffrey Phipps MD 01/08/20 185 [id number] Geoffrey Phipps MD /nt
[2020-01-08 20:00] VITALS: BP 126/68
[2020-01-09 00:46] VITALS: BP 92/52
[2020-01-09 04:16] VITALS: BP 119/63; BP 138/70
[2020-01-09 08:00] VITALS: BP 127/67
[2020-01-09] MEDS ORDERED: LORAZEPAM0.5 MG/1 M SUBLING ×2 (09:36)
[2020-01-09] MEDS ORDERED: MSL20MG/ML PO ×2 (09:36)
[2020-01-09 12:00] VITALS: BP 137/75
[2020-01-09 15:30] VITALS: BP 117/67
== END 2020-01-09 17:23 | disposition hospice, home (50) | DRG 64 ==
LOC: M.2W 14:20
PROVIDERS: Internal Medicine; ADMIT Family Medicine; ATTEND Family Medicine
PROC: 0DH63UZ Insertion of Feeding Device into Stomach, Percutaneous Approach (ICD-10-PCS; principal; 2020-01-03)
DX: I63.89 Other cerebral infarction (principal); N18.6 End stage renal disease; E43 Unspecified severe protein-calorie malnutrition; G93.41 Metabolic encephalopathy; J96.01 Acute respiratory failure with hypoxia; J81.1 Chronic pulmonary edema; N39.0 Urinary tract infection, site not specified; Z16.22 Resistance to vancomycin related antibiotics; I12.0 Hypertensive chronic kidney disease with stage 5 chronic kidney disease or end stage renal disease; I25.10 Atherosclerotic heart disease of native coronary artery without angina pectoris; E11.22 Type 2 diabetes mellitus with diabetic chronic kidney disease; E78.5 Hyperlipidemia, unspecified; D69.6 Thrombocytopenia, unspecified; D63.1 Anemia in chronic kidney disease; B96.89 Other specified bacterial agents as the cause of diseases classified elsewhere; I27.20 Pulmonary hypertension, unspecified; M48.02 Spinal stenosis, cervical region; D72.829 Elevated white blood cell count, unspecified; F32.9 Major depressive disorder, single episode, unspecified; E11.21 Type 2 diabetes mellitus with diabetic nephropathy; M47.812 Spondylosis without myelopathy or radiculopathy, cervical region; I25.2 Old myocardial infarction; Z99.2 Dependence on renal dialysis; Z88.8 Allergy status to other drugs, medicaments and biological substances; Z79.4 Long term (current) use of insulin; Z79.899 Other long term (current) drug therapy; Z79.01 Long term (current) use of anticoagulants